=== PATIENT | male | born 1965 | race Caucasian/White ===

== ENCOUNTER 2017-03-12 06:11 | Inpatient (IN) | payer OTHER ==
[2017-03-12] MEDS ORDERED: Ondansetron INJ* 2 MG/ML VIAL ONE (06:14)
[2017-03-12] MEDS ORDERED: Morphine INJ* 4 MG/ML 1 ML CARPUJECT IV ONE ×2 (06:14→06:18)
[2017-03-12] MEDS ORDERED: Heparin for STEMI(*) 5,000 UNITS/ML 1 ML VIAL IV ONE (06:18)
[2017-03-12] MEDS ORDERED: NS 0.9% 1000 ML* 1,000 ML IV ONE (06:18)
[2017-03-12] MEDS ORDERED: nitroGLYCERIN DRIP* 25,000 MCG in PREMIX* 0 ML IV ONE (06:18)
[2017-03-12] MEDS ORDERED: Metoprolol Tartrate IV* 1 MG/ML 5 ML VIAL IV ONE (06:18)
[2017-03-12] MEDS ORDERED: Ticagrelor* 90 MG TAB PO ONE ×2 (06:18→06:22)
[2017-03-12] MEDS ORDERED: Ondansetron INJ* 2 MG/ML VIAL IV ONE (06:18)
[2017-03-12] MEDS ORDERED: Metoprolol Tartrate IV* 1 MG/ML 5 ML VIAL ONE (06:22)
[2017-03-12] MEDS ORDERED: nitroGLYCERIN DRIP* 25,000 MCG/250 ML BTL ONE ×2 (06:22→06:42)
[2017-03-12] MEDS ORDERED: Heparin VIAL(*) 5000 UNITS/ML VIAL (FIVE THOUSAND) ONE (06:22)
[2017-03-12 06:36] LABS: Hematocrit 46 % (42-52); Hemoglobin 15.9 g/dl (14.0-18.0); Mean Corpuscular HGB Conc 35 g/dl (31-36); Mean Corpuscular Hemoglobin 32 pg (27-31); Mean Corpuscular Volume 94 fL (80-94); Mean Platelet Volume 8 um3 (7.4-10.4); Platelet Count 260 10^3/ul (150-450); Red Cell Distribution Width 13 % (10.5-15); White Blood Count 13.6 10^3/ul (3.5-10.8)
[2017-03-12] MEDS ORDERED: Midazolam* 1 MG/ML 10 ML VIAL (10 MG) ONE (06:41)
[2017-03-12] MEDS ORDERED: fentaNYL* 50 MCG/ML 2 ML VIAL (100 MCG VIAL) ONE ×2 (06:41→07:19)
[2017-03-12] MEDS ORDERED: Iohexol 350 (CONTRAST) 200 ML MDV IV ONE (06:42)
[2017-03-12] MEDS ORDERED: Heparin 2 UNITS/ML IVPREMIX* 3,000 ML IV ONE (06:42)
[2017-03-12] MEDS ORDERED: Lidocaine 1% INJ* 10 MG/ML 30 ML SDV ONE (06:42)
[2017-03-12] MEDS ORDERED: Heparin(*) 1000 UNIT/ML 10 ML VIAL CATH LAB IV ONE (06:52)
[2017-03-12] MEDS ORDERED: VERAPAMIL 2.5 MG/ML 4 ML VIAL ONE (06:52)
[2017-03-12 06:59] LABS: EGFR Non-African American 75.6 (>60)
--- NOTE | 2017-03-12 07:03 | ED ---
Ryan Alvarenga Angela, scribed for Dennis Adam MD on 03/12/17 at 0619 . HPI Chest Pain - HPI Summary HPI Summary: STEMI overheard at 06:04, ETA 3 minutes. This pt is a 51 y/o male presenting to [facility] via EMS c/o mid sternal chest pain since 01:00 today. Pt reports the pain suddenly woke him up from sleep at 01:00 today and it continued throughout the night. EMS states the pain radiates to his left arm. Pt notes diaphoresis. He denies pain radiating to his back, LE pain, abd pain, nausea. There are no aggravating or alleviating factors. EMS administered 324 mg of aspirin and nitroglycerin en route prior to arrival to the ED. EMS reports blood pressure of 200/120. Pt denies any drug use. He is a current smoker. NKDA. He notes the last time he saw his PCP was 30 years ago. - History of Current Complaint Hx Obtained From: Patient, EMS Onset/Duration: Started Hours Ago, Still Present Timing: Lasting Hours Current Severity: Severe Pain Intensity: 10 Pain Scale Used: 0-10 Numeric Chest Pain Location: Mid Sternal Chest Pain Radiates: Yes Chest Pain Radiates To:: Arm - left Aggravating Factor(s): Nothing Alleviating Factor(s): Nothing Associated Signs and Symptoms: Positive: Chest Pain, Diaphoresis. Negative: Abdominal Pain, Calf Pain/Swelling - Allergy/Home Medications Allergies/Adverse Reactions: Allergies Allergy/AdvReac Type Severity Reaction Status Date / Time No Known Allergies Allergy Verified 09/08/15 09:03 PMH/Surg Hx/FS Hx/Imm Hx Endocrine/Hematology History: Denies: Hx Diabetes Cardiovascular History: Reports: Hx Angina, Hx Hypercholesterolemia Denies: Hx Coronary Artery Disease, Hx Hypertension, Hx Myocardial Infarction , Hx Valvular Heart Disease Respiratory History: Denies: Hx Asthma, Hx Chronic Obstructive Pulmonary Disease (COPD) History: Reports: Hx Kidney Stones - Family History Known Family History: Positive: Cardiac Disease - mother and father - Social History Alcohol Use: None Substance Use Type: Reports: None Smoking Status (MU): Light Every Day Tobacco Smoker Type: Cigarettes Review of Systems Positive: Skin Diaphoresis. Negative: Fever Positive: Chest Pain Negative: Abdominal Pain Negative: Other - LE pain All Other Systems Reviewed And Are Negative: Yes Physical Exam - Summary Physical Exam Summary: Appearance: Ill appearing, moderate distress due to pain Skin: warm, reflects adequate perfusion. Pt is diaphoretic. Head/face: normal Eyes: EOMI, CATHERINE ENT: Moist mucous membranes. Neck: supple, non-tender Respiratory: CTA, breath sounds present Cardiovascular: RRR without murmurs. Pulses symmetrical Abdomen: non-tender, soft Bowel: present Musculoskeletal: normal, strength/ROM intact Neuro: normal, sensory motor intact, A&Ox3 Triage Information Reviewed: Yes Vital Signs On Initial Exam: Initial Vitals Temp Pulse Resp BP Pulse Ox 36.3 C 81 24 182/105 96 03/12/17 06:14 03/12/17 06:14 03/12/17 06:14 03/12/17 06:14 03/12/17 06:14 Vital Signs Reviewed: Yes Diagnostics - Vital Signs Vital Signs Temp Pulse Resp BP Pulse Ox 03/12/17 06:45 36.3 C 70 16 157/92 99 03/12/17 06:35 70 30 157/92 99 03/12/17 06:30 72 28 156/95 99 03/12/17 06:20 20 03/12/17 06:17 25 182/105 91 03/12/17 06:16 59 96 03/12/17 06:14 36.3 C 81 24 182/105 96 - Laboratory Lab Results: Lab Results 03/12/17 03/12/17 Range/Units 06:23 06:23 WBC 13.6 H (3.5-10.8) 10^3/ul RBC 4.90 (4.0-5.4) 10^6/ul Hgb 15.9 (14.0-18.0) g/dl Hct 46 (42-52) % MCV 94 (80-94) fL MCH 32 H (27-31) pg MCHC 35 (31-36) g/dl RDW 13 (10.5-15) % Plt Count 260 (150-450) 10^3/ul MPV 8 (7.4-10.4) um3 Neut % (Auto) Pending Lymph % (Auto) Pending [place] % (Auto) Pending Eos % (Auto) Pending Baso % (Auto) Pending Absolute Neuts (auto) Pending Absolute Lymphs (auto) Pending Absolute Monos (auto) Pending Absolute Eos (auto) Pending Absolute Basos (auto) Pending Absolute Nucleated RBC Pending Nucleated RBC % Pending Sodium 138 (133-145) mmol/L Potassium 3.7 (3.5-5.0) mmol/L Chloride 104 (101-111) mmol/L Carbon Dioxide 24 (22-32) mmol/L Anion Gap 10 (2-11) mmol/L BUN 14 (6-24) mg/dL Creatinine 1.04 (0.67-1.17) mg/dL Est GFR ( Amer) 97.2 (>60) Est GFR (Non-Af Amer) 75.6 (>60) BUN/Creatinine Ratio 13.5 (8-20) Glucose 141 H (70-100) mg/dL Calcium 9.8 (8.6-10.3) mg/dL Total Bilirubin 0.40 (0.2-1.0) mg/dL AST 37 (13-39) U/L ALT 37 (7-52) U/L Alkaline Phosphatase 100 (34-104) U/L Total Creatine Kinase 684 H (10-223) U/L CK-MB (CK-2) Pending Troponin I Pending Total Protein 7.5 (6.4-8.9) g/dL Albumin 4.1 (3.2-5.2) g/dL Globulin 3.4 (2-4) g/dL Albumin/Globulin Ratio 1.2 (1-3) LDL Cholesterol Direct 197 mg/dL Result Diagrams: 03/12/17 06:23 03/12/17 06:23 Lab Statement: Any lab studies that have been ordered have been reviewed, and results considered in the medical decision making process. - Radiology Chest XR Xray Interpretation: Positive (See Comments) - Overexposed. No cardiomegaly. Normal mediastinum. Radiology Interpretation Completed By: ED Physician - EKG 06:12 Cardiac Rate: NL EKG Rhythm: Sinus Rhythm - at 79 bpm EKG Interpretation: Normal axis. ST elevation in II, III, and aVF. ST depression in I and aVL. Chest Pain Course/Dx - Course Course Of Treatment: EMS administered 324 mg of aspirin and nitroglycerin en route prior to arrival to the ED. I discussed pt care with Dr. Alvarado, who will come see the pt in the ED. He will take the pt to the can labeler direct. With inf wall TN, crushing pain tx with morphine and low dose Nitro gtt (with fluids). Beta derek, heparin and Brilinta given in ED. He was improving at dispo to can labeler. - Diagnoses Provider Diagnoses: STEMI (ST elevation myocardial infarction) During the Visit The Following Alert/Code Occurred: STEMI - at 06:04, ETA 3 minutes. - Provider Notifications Discussed Care Of Patient With: Osmin Alvarado Time Discussed With Above Provider: 06:05 Instructed by Provider To: Other - I discussed pt care with Dr. Alvarado, who will come see the pt in the ED. He will admit the pt. - Critical Care Time Critical Care Time: 30-74 min - 30 minutes - CCT is EXCLUSIVE of separately billable procedures Discharge - Discharge Plan Condition: Critical Disposition: ADMITTED TO [facility] Referrals: No Primary Care Phys,NOPCP [Primary Care Provider] - The documentation as recorded by the Ryan vilchis Angela accurately reflects the service I personally performed and the decisions made by , Dennis Adam MD.
[2017-03-12 07:10] LABS: INR 0.88 (0.77-1.02)
--- NOTE | 2017-03-12 08:02 | RAD ---
HISTORY: Chest pain, STEMI COMPARISONS: October 05, 2013 VIEWS: 1: frontal portable view of the chest at 6:26 AM FINDINGS: LINES AND TUBES: None. CARDIOMEDIASTINAL SILHOUETTE: The cardiomediastinal silhouette is normal for portable technique. PLEURA: The costophrenic angles are sharp. No pleural abnormalities are noted. LUNG PARENCHYMA: The lungs are clear. ABDOMEN: The upper abdomen is clear. There is no subphrenic gas. BONES AND SOFT TISSUES: No bone or soft tissue abnormalities are noted. IMPRESSION: NO ACTIVE CARDIOPULMONARY DISEASE.
[2017-03-12 08:42] LABS: Monocytes % 3 % (0-13)
[2017-03-12] MEDS ORDERED: Nitroglycerin TAB 0.4 MG* 0.4 MG TAB SL PRN (09:12)
[2017-03-12] MEDS ORDERED: Acetaminophen TAB* 325 MG PO PRN (09:12)
[2017-03-12] MEDS ORDERED: NS 0.9% 1000 ML* 1,000 ML IV SCH (09:15)
[2017-03-12] MEDS: Metoprolol Tartrate TAB* 25 MG PO SCH ×2 (10:47→18:31)
[2017-03-12] MEDS: LORazepam INJ* 2 MG/ML 1 ML VIAL IV PUSH PRN ×2 (11:30→21:28)
[2017-03-12] MEDS: Nicotine PATCH 14 MG/24 HR* PATCH TRANSDERM SCH (12:00)
--- NOTE | 2017-03-12 12:59 | HP ---
CC: Awilda Pepe MD HISTORY AND PHYSICAL: DATE OF ADMISSION: 03/12/17 HISTORY OF PRESENT ILLNESS: A 51-year-old male with acute inferior wall ST- elevation infarct. He has not seen a physician for some 30 years. He takes no medications. At approximately 0100 hours, he developed precordial chest pain, tried to "tough it out." Ultimately, he called paramedics, EKG showed inferior ST elevation, he was given aspirin and transported to the ER. EKG at 0612 showed sinus rhythm with inferior ST elevation, reciprocal ST depression in I, aVL, V1 and V2. A STEMI was called. In retrospect, he has no previous clear chest pain, but has been more fatigued. SOCIAL HISTORY: He is a smoker. He is . 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 He smokes about a pack per day. FAMILY HISTORY: Positive for premature coronary artery disease in numerous relatives. PREHOSPITAL MEDICATIONS: None. REVIEW OF SYSTEMS: General: No weight loss. No fever. He is moderately overweight and fairly sedentary. Heme: no h/o anemia or bleeding. Remainder 14 point review -. PHYSICAL EXAMINATION VITAL SIGNS: On arrival, BP recorded at 182/105, heart rate in the 80s. HEENT: Mucosa moist, poor dentition, no xanthelasma, scleral injection or jaundice. EOMs normal. NECK: JVP and carotids and normal. No thyromegaly. CHEST: Clear to percussion and auscultation. HEART: Chest wall nontender, apex and RV not palpable. Normal heart sounds, regular rhythm. No gallop, murmur, or rub. ABDOMEN: Soft, nontender, obese. No bruit. I cannot feel the aorta or liver edge. No masses. EXTREMITIES: Femoral pulses 2+. Radial pulses 2+. Pedal pulses 2+. He has no cyanosis, clubbing or edema. NEUROLOGIC: Cranial nerves intact. SKIN: Warm and well perfused. PSYCH: He is oriented and appropriately anxious. DIAGNOSTIC STUDIES/LABORATORY DATA: EKG is as above. White count 13.6 with normal hemoglobin, hematocrit and platelet count. BMP normal with creatinine of 1.04, GFR 75.6. First CPK elevated at 684 with MB of 8, troponin 0.16. LDL 197. Chest x-ray by my review of portable film, no infiltrate or heart failure. IMPRESSION: 1. Acute inferior wall ST-elevation infarct Killip class I. He underwent emergent catheterization. 2. Tobacco use. We will encourage him not to resume smoking. 3. Hyperlipidemia. He will be started on high dose potent statin. 4. Presenting hypertension, we will follow his vitals. [id number]/[facility] [facility] #: [id number] MTDD
[2017-03-12] MEDS ORDERED: Atorvastatin* 80 MG TAB PO SCH (17:00)
[2017-03-12] MEDS ORDERED: Nicotine Patch Removal NOTE PATCH OFF SCH (21:00)
[2017-03-12] MEDS: Ticagrelor* 90 MG TAB PO SCH (21:11)
--- NOTE | 2017-03-13 00:52 | CATH ---
CC: Dr. Alvarado STENT REPORT: DATE OF PROCEDURE: 03/12/17 PRIMARY: None. PROCEDURES: Right radial artery access, bilateral selective coronary cineangiography, left heart catheterization, left ventriculography. HISTORY: A 51-year-old male presenting late with an inferior wall ST elevation infarct. PROCEDURE ACCESS: Right radial artery sheath 6F slender. MEDICATIONS: 1. Subcu lidocaine. 2. IV Versed. 3. IV fentanyl. 4. Nitroglycerin 300 mcg. 5. Verapamil 3 mg IA. 6. Brilinta 180 mg p.o. loading dose. 7. Heparin 4000 units IV. 8. Aspirin 324 pre-laboratory animal care veterinarian. 9. Heparin 5000 units IV. DIAGNOSTIC CATHETER: 5F TIG4, 5F pigtail. GUIDING CATHETER: RCA 6F R4, wire 14 BMW used to deploy a 3.0 x 20 Synergy drug - eluting stent, distal RCA 11 atmospheres 16 seconds, post-dilated with a 3 x 20 NC balloon 20 atmospheres 30 seconds. A 6F LBU 3.5 guide was then used with a 14 BMW wire to deploy a Synergy 2.75 x 16 drug-eluting stent at the origin of OM1 13 atmospheres 20 seconds, it was post-dilated with a 2.75 x 15 mm NC balloon 22 atmospheres 50 seconds. LV gram was then performed. HEMODYNAMICS: Initial BP 154/88, LV 141/14-28, no aortic valve gradient on pullback. ANGIOGRAPHY: RCA. The RCA is large with a Bales's crook take-off, the mid RCA before the crux has a 90% stenosis with a small thrombus, distal RCA has a large distribution with YAMILA-2 flow, a moderate PDA and a larger posterolateral. Left main. The left main is normal. LAD. The LAD is moderate, supplies a moderate diagonal branch, ends past the apex, the LAD has mild luminal irregularity, but no significant stenosis. Circumflex. The circumflex is moderate, not dominant with a large ramus, which has 30% proximal stenosis, followed by a 40% to 50% stenosis in the circumflex continuation, which is quite short, circumflex then supplies a single marginal branch, which has 80% proximal stenosis, the marginal has a large distribution supplying the entire obtuse margin. After stent placement RCA and post-dilatation, there is no residual stenosis, flow is YAMILA-3, there is no dissection. After circumflex OM stent deployment and post-dilation, there is normal antegrade flow, no dissection. LV gram. LV shows hypokinesis of the inferior wall with an LVEF of 45%, was performed on fluoroscopy and not stored digitally. CONCLUSION: 1. Two-vessel coronary disease with culprit RCA, excellent angiographic results with drug-eluting stent placement RCA and circumflex OM. The circumflex continuation after the ramus was not stented as it is at most moderate, very discrete. 2. Mildly reduced LV systolic function with regional wall motion abnormality. [id number]/[facility] #: [id number] [facility]
[2017-03-13] MEDS: Metoprolol Tartrate TAB* 25 MG PO SCH ×2 (02:19→09:21)
[2017-03-13 06:26] LABS: EGFR Non-African American 88.2 (>60)
[2017-03-13] MEDS ORDERED: Aspirin Low Dose CHEW TAB* 81 MG PO SCH (09:00)
[2017-03-13] MEDS: Ticagrelor* 90 MG TAB PO SCH (09:21)
[2017-03-13] MEDS: Nicotine PATCH 14 MG/24 HR* PATCH TRANSDERM SCH (10:13)
[2017-03-13] MEDS: LORazepam INJ* 2 MG/ML 1 ML VIAL IV PUSH PRN (10:16)
[2017-03-13 13:34] VITALS: BP 88/60
[2017-03-13] MEDS ORDERED: Metoprolol Tartrate TAB* 25 MG PO SCH (21:00)
--- NOTE | 2017-03-14 04:52 | DS ---
CC: Dr. Osmin Alvarado DISCHARGE SUMMARY: DATE OF ADMISSION: 03/12/17 DATE OF SIGNING OUT AMA: 03/13/17 PRIMARY CARE PHYSICIAN: None. DISCHARGE DIAGNOSES: 1. Inferior wall ST elevation infarct. 2. Tobacco use. 3. Hyperlipidemia. CONDITION ON DISCHARGE: Improved. PROCEDURES: Cardiac cath, stent placement, right radial approach 03/12 3.0 x 20 mm drug-eluting stent RCA; 2.75 x 16 drug-eluting stent circumflex OM. DISCHARGE MEDICATIONS: 1. Aspirin 81 mg daily. 2. Lipitor 80 mg daily. 3. Metoprolol 25 mg b.i.d. 4. Nicotine patch 14 mg q.24 hours. 5. Nitroglycerin 0.4 sublingual p.r.n. 6. Brilinta 90 mg b.i.d. a minimum of 1 year without interruption. FOLLOWUP: Follow up with me, to call on Wednesday for a followup appointment next week. To not smoke. ACTIVITY: No strenuous exertion for 1 week to walk for 30 minutes daily. Do no resume work for 1 week. DIET: Low fat, low cholesterol, cardiac. HISTORY: See H and P. LABORATORY DATA: BMP today post PCI is stable with normal creatinine. Troponin is up to 1.57 at 2130 last night. Cholesterol 263, triglycerides 203, LDL 194, HDL 33.3 on no therapy. EKG today shows a Q-wave inferior infarct. HOSPITAL COURSE: He presented late with an inferior wall ST elevation infarct, underwent emergent catheterization, which revealed a culprit RCA 80% to 90% stenosis with a thrombus, which was stented with 3 x 20 drug-eluting stent, the circumflex OM with 80% stenosis was stented with a 2.75 x 16 drug-eluting stent. LV gram showed inferior hypokinesis with EF of 45%. He had a small rise in troponin, he had no post PCI chest pain heart failure, arrhythmias or issues with his right wrist. He is recommended a minimum of 48 hours of hospitalization with telemetry to monitor for life threatening arrhythmias; however, he elected to sign out AMA after 24 hours. We have asked home health care social worker to help him to acquire medicaid coverage. I discussed with him at great length that he is taking a risk leaving the hospital AMA. We reviewed the importance of his medical regimen, the importance of followup, the importance of restricting activity for 7 days, reviewed wound care. He will be given a 5-day supply of Brilinta when he leaves, I explained to them that they can get samples from our office if he starts getting low on Brilinta before he can get Medicaid and before his followup visit. I reviewed with him the importance of not discontinuing Brilinta. [id number]/[facility] #: [id number] KATELYN
== END 2017-03-13 15:00 | disposition left against medical advice (07) | DRG 174 ==
LOC: ED 06:11 → CHICATH 06:46 → ICU 08:26
PROVIDERS: ADMIT Internal Medicine Cardiovascular Disease; ATTEND Internal Medicine Cardiovascular Disease
PROC: B2111ZZ Fluoroscopy of Multiple Coronary Arteries using Low Osmolar Contrast (ICD-10-PCS; 2017-03-12)
PROC: B2151ZZ Fluoroscopy of Left Heart using Low Osmolar Contrast (ICD-10-PCS; 2017-03-12)
PROC: 4A023N7 Measurement of Cardiac Sampling and Pressure, Left Heart, Percutaneous Approach (ICD-10-PCS; 2017-03-12)
PROC: 027135Z Dilation of Coronary Artery, Two Arteries with Two Drug-eluting Intraluminal Devices, Percutaneous Approach (ICD-10-PCS; principal; 2017-03-12 06:45)
DX: I21.19 ST elevation (STEMI) myocardial infarction involving other coronary artery of inferior wall (principal); E66.3 Overweight; E78.5 Hyperlipidemia, unspecified; Z53.21 Procedure and treatment not carried out due to patient leaving prior to being seen by health care provider; F17.210 Nicotine dependence, cigarettes, uncomplicated; I10 Essential (primary) hypertension; I25.10 Atherosclerotic heart disease of native coronary artery without angina pectoris; Z79.82 Long term (current) use of aspirin; Z79.02 Long term (current) use of antithrombotics/antiplatelets; Z82.49 Family history of ischemic heart disease and other diseases of the circulatory system; Z68.33 Body mass index [BMI] 33.0-33.9, adult
CPT/HCPCS: 36415; 71045; 80048; 80053; 80061; 82550; 82553; 83605; 83721; 83880; 84484; 85025; 85060; 85610; 85730; 87641; 93005; 99156; 99157; 99285; A9270-GY; C1725; C1769; C1876; C1887; C9601-LC; C9606-RC; J1644; J2060; J2250; J2270; J2405; J3010; J3490

== ENCOUNTER 2018-06-10 10:22 | Emergency (ER) | payer SELFPAY ==
[2018-06-10] MEDS ORDERED: NS 0.9% 1000 ML** 1,000 ML IV ONE ×2 (10:29→11:32)
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
[2018-06-10] MEDS ORDERED: Iodixanol* (CONTRAST) 320 MG/ML 100 ML SDV IV ONE (10:45)
[2018-06-10] MEDS ORDERED: Morphine 4 MG/ML VIAL (1 ml) 4 MG/ML VIAL IV ONE (11:12)
[2018-06-10] MEDS ORDERED: Ondansetron INJ* 2 MG/ML VIAL IV ONE (11:12)
[2018-06-10 11:13] LABS: ABS Basophils 0.1 10^3/ul (0-0.2); ABS Eosinophils 0 10^3/ul (0-0.6); ABS Lymphocytes 1.6 10^3/ul (1.0-4.8); ABS Monocytes 0.9 10^3/ul (0-0.8); ABS Neutrophils 11.1 10^3/ul (1.5-7.7); ABS Nucleated RBC 0 10^3/ul; Eosinophil % 0.4 %; Hematocrit 45 % (36-46); Hemoglobin 15.1 g/dL (14.0-18.0); Lymphocyte % 11.9 %; Mean Corpuscular HGB Conc 34 g/dL (31-36); Mean Corpuscular Hemoglobin 32 pg (27-31); Mean Corpuscular Volume 94 fL (80-94); Mean Platelet Volume 7.4 fL (7.4-10.4); Nucleated Red Blood Cells % 0; Platelet Count 258 10^3/uL (150-450); Red Blood Count 4.76 10^6 /uL (4.18-5.48); Red Cell Distribution Width 13 % (10.5-15); White Blood Count 13.8 10^3/uL (3.5-10.8)
[2018-06-10 11:32] LABS: ALT 31 U/L (7-52); AST 33 U/L (13-39); Albumin 3.7 g/dL (3.2-5.2); Albumin/Globulin Ratio 1.1 (1-3); Alkaline Phosphatase 95 U/L (34-104); Anion Gap 6 mmol/L (2-11); BUN/Creatinine Ratio 16.8 (8-20); Blood Urea Nitrogen 20 mg/dL (6-24); CO2 Carbon Dioxide 21 mmol/L (22-32); Calcium 8.9 mg/dL (8.6-10.3); Chloride 109 mmol/L (101-111); Creatine Kinase 659 U/L (10-223); EGFR Non-African American 64.4 (>60); Globulin 3.4 g/dL (2-4); Glucose 106 mg/dL (70-100); Potassium 4.1 mmol/L (3.5-5.0); Sodium 136 mmol/L (135-145); Total Protein 7.1 g/dL (6.4-8.9)
[2018-06-10 11:47] LABS: Alcohol < 10 mg/dL (<10)
[2018-06-10 12:36] LABS: Urine Appearance Clear; Urine Bacteria Absent (Absent); Urine Bilirubin Negative (Negative); Urine Blood 1+ (Negative); Urine Color Yellow; Urine Glucose Negative (Negative); Urine Ketones Negative (Negative); Urine Nitrite Negative (Negative); Urine Protein Negative (Negative); Urine Red Blood Cell Trace(0-2/hpf) (Absent); Urine Specific Gravity 1.053 (1.010-1.030); Urine Urobilinogen Negative (Negative); Urine White Blood Cell Trace(0-5/hpf) (Absent)
[2018-06-10 12:54] LABS: Urine Benzodiazepine Screen None Detected (None Detect); Urine Opiates Screen Presumptive Positive (None Detect)
[2018-06-10] MEDS ORDERED: oxyCODONE/Acetamin 5/325 MG* TAB PO ONE (13:27)
[2018-06-10 14:06] VITALS: BP 153/92
== END 2018-06-10 14:09 | disposition left against medical advice (07) ==
LOC: ED 10:22
DX: M25.511 Pain in right shoulder (principal); M25.512 Pain in left shoulder; Z53.21 Procedure and treatment not carried out due to patient leaving prior to being seen by health care provider; E78.00 Pure hypercholesterolemia, unspecified; I25.2 Old myocardial infarction; Z87.442 Personal history of urinary calculi; F17.210 Nicotine dependence, cigarettes, uncomplicated; S00.81XA Abrasion of other part of head, initial encounter; V18.4XXA Pedal cycle driver injured in noncollision transport accident in traffic accident, initial encounter; Y93.55 Activity, bike riding; Y92.488 Other paved roadways as the place of occurrence of the external cause
CPT/HCPCS: 36415; 70450; 71260; 72125; 72128; 72131; 74177; 80053; 80307; 80320; 81003; 81015; 82550; 83605; 85025; 85610; 86850; 86900; 86901; 87086; 93005; 96361; 96374; 96375; 99285; A9270-GY; G0480; J2270; J2405; Q9967

== ENCOUNTER 2018-07-06 14:45 | Inpatient (IN) | payer MEDICAID ==
[2018-07-06] MEDS ORDERED: Ticagrelor* 90 MG TAB PO ONE ×2 (14:47→17:00)
[2018-07-06] MEDS ORDERED: Heparin for STEMI(*) 5,000 UNITS/ML 1 ML VIAL IV ONE ×4 (14:47→17:00)
[2018-07-06] MEDS ORDERED: Midazolam* 1 MG/ML 5 ML VIAL (5 MG) ONE (14:55)
[2018-07-06] MEDS ORDERED: Heparin 2 UNITS/ML IVPREMIX* 3,000 UNIT/1,500 ML BAG IV ONE (14:55)
[2018-07-06] MEDS ORDERED: fentaNYL* 50 MCG/ML 2 ML VIAL (100 MCG VIAL) ONE (14:55)
[2018-07-06] MEDS ORDERED: Heparin(*) 1000 UNIT/ML 10 ML VIAL CATH LAB IV ONE (14:55)
[2018-07-06] MEDS ORDERED: VERAPAMIL 2.5 MG/ML 2 ML VIAL ** 5 mg/2 ml ONE (14:55)
[2018-07-06] MEDS ORDERED: Iohexol 350 (CONTRAST) 200 ML MDV IV ONE (14:56)
[2018-07-06] MEDS ORDERED: nitroGLYCERIN DRIP* 25,000 MCG/250 ML BTL ONE ×2 (14:56→15:04)
[2018-07-06] MEDS ORDERED: Lidocaine 1% INJ* 10 MG/ML 30 ML SDV ONE (14:56)
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
--- OUTSIDE RECORDS SUMMARY | 2018-07-06 14:56 | XMS REPORT | Continuity of Care Document ---
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 03/13/2017 - 81mg day MD Christiano, 06/14/2018 [facility]wt[facility] [place] [place] Atorvastatin Calcium 1 by mouth every Marcis T. 03/13/2017 - 80mg day MD Christiano, 06/14/2018 Tablets [facility] [place] [place] Metoprolol Tartrate 1 by mouth twice a Marcis T. 03/13/2017 - 25mg day MD Christiano, 06/14/2018 [facility]ts [facility] [place] [place] Brilinta 1 tab by mouth 60tabs Osmin T. 03/13/2017 - 90mg Tablets twice a day MD Christiano, 06/14/2018 FACDonny, FSCSARINA Nitrostat one sl q5min up to 14tabs Osmin T. 03/13/2017 - 0.4mg Tablets 3 doses as needed MD Christiano, 06/14/2018 Sub [facility] [place] [place] Nicotine 1 apply patch 30units Osmin Rene 03/13/2017 - 14mg/24HR topically every 24 MD Christiano, 06/14/2018 Patches 24HR hours. [facility] Immunizations Description No Information Available Vital Signs Date Vital Result Comment 06/15/2018 10:05am Height 66 inches 5'6" Weight 211.00 lb Heart Rate 72 /min BP Systolic Sitting 152 mmHg BP Diastolic Sitting 100 mmHg Respiratory Rate 18 /min Pain Level 10 BMI (Body Mass Index) 34.1 kg/m2 Results Description No Information Available Procedures Date Code Description Status 03/13/2017 27031 EKG, Interpretation Only Completed 03/12/2017 52514 Left Heart Cath. Incl S/I Coronaries, Angio S/I V Gram If Completed Done 03/12/2017 11918 EKG, Interpretation Only Completed 03/12/2017 99486 Revascularization Acute Total/Subtotal Occlusion Completed 03/12/2017 58680 Percutaneous Transcatheter Placement Of Intracoronary Completed Stent 10/06/2013 02271 Treadmill Interp/Report Only Completed 10/06/2013 18935 Stress Test Supervsn W/Out I/R Completed Encounters Type Date Location Provider Dx Diagnosis Office Visit 06/15/2018 [facility] Zay S43.51xA Sprain of right 9:30a Services Of MD Lisette acromioclavicular C.M.A. 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 coronary artery w/o ang pctrs E78.5 Hyperlipidemia, unspecified Z72.0 Tobacco use Office Visit 03/12/2017 1:50p [place] [facility] Osmin Rene I21.11 Stemi involving Of [employer]ading Supervisor AT [facility] [place] MD Christiano, right coronary [facility] artery I25.10 Aths[address] heart disease of [place] coronary artery w/o ang pctrs E78.5 Hyperlipidemia, unspecified Z72.0 Tobacco use Office Visit 10/06/2013 12:57p [place] Cayedn Abreu, 786.50 [facility]jennifer Poll[facility]. [facility] 305.1 Tobacco Use Disorder Office [facility]/05[facility]2013 [facility] 786.[facility]jennifer Strange [facility] Hospitalists 305.1 Tobacco Use Disorder Plan of Treatment Future Appointment(s):07/13/2018 9:45 am - Zay Knox MD at [facility]06/15/2018 - Zay Knox MDS43.51xA Sprain of right acromioclavicular joint, initial encounterNew Therapy:Physical TherapyFollow up: Follow up: 4 weeks
[2018-07-06 15:00] LABS: Hematocrit 50 % (42-52); Hemoglobin 17.1 g/dL (14.0-18.0); Mean Corpuscular HGB Conc 34 g/dL (31-36); Mean Corpuscular Hemoglobin 32 pg (27-31); Mean Corpuscular Volume 94 fL (80-94); Mean Platelet Volume 7.8 fL (7.4-10.4); Platelet Count 335 10^3/uL (150-450); Red Blood Count 5.34 10^6 /uL (4.18-5.48); Red Cell Distribution Width 13 % (10.5-15); White Blood Count 16.7 10^3/uL (3.5-10.8)
--- NOTE | 2018-07-06 15:09 | ED ---
HPI Cardiac - HPI Summary HPI Summary: The patient is a 52 y/o M presenting to 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 He was in the shower when the sharp, stabbing pain started. In the ambulance, he was given ASA and 4 NTG to mild relief. His pain is currently rated 10/10 in severity. He additionally c/o diaphoresis, clamminess, and SOB. He states he has been taking his medication BID as supposed to that he was prescribed after getting stents placed a few months ago. 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, Still Present Timing: Lasting Minutes Initial Severity: Severe Current Severity: Severe Pain Intensity: 10 Pain Scale Used: 0-10 Numeric Chest Pain Location: Diffuse Chest Pain Radiates: No Character: Sharp/Stabbing Aggravating Factor(s): Nothing Alleviating Factor(s): Medication - ASA, NTG 123 - 4 Associated Signs and Symptoms: Positive: Chest Pain - diffuse, Shortness of Breath, Diaphoresis - and clamminess - Allergy/Home Medications Allergies/Adverse Reactions: Allergies Allergy/AdvReac Type Severity Reaction Status Date / Time No Known Allergies Allergy Verified 09/08/15 09:03 PMH/Surg Hx/FS Hx/Imm Hx Endocrine/Hematology History: Denies: Hx Diabetes Cardiovascular History: Reports: Hx Angina, Hx Hypercholesterolemia, Hx Myocardial Infarction Denies: Hx Coronary Artery Disease, Hx Hypertension, Hx Valvular Heart Disease Respiratory History: Denies: Hx Asthma, Hx Chronic Obstructive Pulmonary Disease (COPD) History: Reports: Hx Kidney Stones Denies: Hx Renal Disease Sensory History: Denies: Hx Contacts or Glasses, Hx Hearing Aid Opthamlomology History: Denies: Hx Contacts or Glasses - Surgical History Surgery Procedure, Year, and Place: cardiac stent placement in 2019 Infectious Disease History: No Infectious Disease History: Denies: Traveled Outside the [place] in Last 30 Days - Family History Known Family History: Positive: Cardiac Disease - mother and father - Social History Alcohol Use: Occasionally Hx Substance Use: No Substance Use Type: Reports: None Hx Tobacco Use: Yes Smoking Status (MU): Light Every Day Tobacco Smoker Type: Cigarettes Review of Systems Positive: Skin Diaphoresis - clammy Positive: Chest Pain Positive: Shortness Of Breath All Other Systems Reviewed And Are Negative: Yes Physical Exam - Summary Physical Exam Summary: VITAL SIGNS: Reviewed. GENERAL: Patient is a well-developed and nourished male who is lying comfortable in the stretcher. Patient is not in any acute respiratory distress but is in obvious pain distress. HEAD AND FACE: No signs of trauma. No ecchymosis, hematomas or skull depressions. No sinus tenderness. EYES: PERRLA, EOMI x 2, No injected conjunctiva, no nystagmus. EARS: Hearing grossly intact. Ear canals and tympanic membranes are within normal limits. MOUTH: Oropharynx within normal limits. NECK: Supple, trachea is midline, no adenopathy, no JVD, no carotid bruit, no c- spine tenderness, neck with full ROM. CHEST: Symmetric, no tenderness at palpation LUNGS: Clear to auscultation bilaterally. No wheezing or crackles. CVS: Regular rate and rhythm, S1 and S2 present, no murmurs or gallops appreciated. ABDOMEN: Soft, non-tender. No signs of distention. No rebound no guarding, and no masses palpated. Bowel sounds are normal. EXTREMITIES: FROM in all major joints, no edema, no cyanosis or clubbing. NEURO: Alert and oriented x 3. No acute neurological deficits. Speech is normal and follows commands. SKIN: Dry and warm Triage Information Reviewed: Yes Vital Signs On Initial Exam: Initial Vitals Temp Pulse Resp BP Pulse Ox 97.5 F 81 24 211/118 100 07/06/18 14:45 07/06/18 14:45 07/06/18 14:45 07/06/18 14:45 07/06/18 14:45 Vital Signs Reviewed: Yes Diagnostics - Vital Signs Vital Signs Temp Pulse Resp BP Pulse Ox 07/06/18 14:45 97.5 F 81 24 211/118 100 - Laboratory Lab Results: Lab Results 07/06/18 Range/Units 14:51 WBC 16.7 H (3.5-10.8) 10^3/uL RBC 5.34 (4.18-5.48) 10^6 /uL Hgb 17.1 (14.0-18.0) g/dL Hct 50 (42-52) % MCV 94 (80-94) fL MCH 32 H (27-31) pg MCHC 34 (31-36) g/dL RDW 13 (10.5-15) % Plt Count 335 (150-450) 10^3/uL MPV 7.8 (7.4-10.4) fL Neut % (Auto) Pending Lymph % (Auto) Pending Estill % (Auto) Pending Eos % (Auto) Pending Baso % (Auto) Pending Absolute Neuts (auto) Pending Absolute Lymphs (auto) Pending Absolute Monos (auto) Pending Absolute Eos (auto) Pending Absolute Basos (auto) Pending Absolute Nucleated RBC Pending Nucleated RBC % Pending Result Diagrams: 07/07/18 04:40 07/07/18 09:10 Lab Statement: Any lab studies that have been ordered have been reviewed, and results considered in the medical decision making process. - EKG 1441 Cardiac Rate: Tachycardia - 103 BPM EKG Rhythm: Sinus Tachycardia Summary of EKG Findings: St elevations in 2, 3, and aVF, Reciprocal changes in V1, V2, V3, and V4, Consistent with inferior wall DC Disposition - Course Assessment/Plan: The patient is a 52 y/o M presenting to 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 He was in the shower when the sharp, stabbing pain started. In the ambulance, he was given ASA and 4 NTG to mild relief. His pain is currently rated 10/10 in severity. He additionally c/o diaphoresis, clamminess, and SOB. He states he has been taking his medication BID as supposed to that he was prescribed after getting stents placed a few months ago. The patient came via ambulance. Patient was immediately placed in the headache monitor, IV access was obtained, blood work was ordered, an EKG was done. The EKG shows a sinus tachycardia 103 bpm, ST elevations in leads 2, 3, aVF, with reciprocal changes in V1 - V3. Dr. Lassiter from interventional Cardiology at bedside. In the ED course the patient was given heparin Brilinta. At this point Dr. Lassiter will be admitted the patient to his services and will bring the patient to the [facility]. The patient signed the consent for the Cath. At this time the patient is hemolytically stable. The patient is alert and oriented 3. Blood work without any significant abnormality except for the bilirubin of 16.7, glucose is 121, and troponin is 0.01, CPK is 539, and alkaline phosphatase is 155. - Diagnoses Provider Diagnoses: STEMI (ST elevation myocardial infarction) - Physician Notifications Discussed Care Of Patient With: Jackson Lassiter - cardiology Time Discussed With Above Provider: 14:43 Instructed by Provider To: Other - Dr. Lassiter clears the patient to go to the cytogenetics laboratory manager. The patient is accepted for admission at this time. - Critical Care Time Critical Care Time: 30-74 min Discharge - Sign-Out/Discharge Documenting (check all that apply): Patient Departure - Patient will be admitted to [facility] for further care. Patient Received Moderate/Deep Sedation with Procedure: No - Discharge Plan Condition: Critical Disposition: ADMITTED TO [facility] - Billing Disposition and Condition Condition: CRITICAL Disposition: Admitted to [facility] - Attestation Statements Document Initiated by Quincy: Yes Documenting Scribe: Cassandra Whittaker Provider For Whom Quincy is Documenting (Include Credential): Dr. David Potts MD Scribe Attestation: ICassandra scribed for Dr. David Potts MD on 07/07/18 at 2129. Scribe Documentation Reviewed: Yes Provider Attestation: The documentation as recorded by the Cassandra vilchis accurately reflects the service I personally performed and the decisions made by me, Dr. David Potts MD Status of Scribe Document: Viewed
[2018-07-06] MEDS ORDERED: Bivalirudin(*) 250 MG VIAL ONE (15:19)
[2018-07-06 15:20] LABS: Albumin 4.6 g/dL (3.2-5.2); Albumin/Globulin Ratio 1.2 (1-3); BUN/Creatinine Ratio 17.4 (8-20); Calcium 9.9 mg/dL (8.6-10.3); EGFR African American 81.1 (>60); Globulin 3.8 g/dL (2-4); Potassium 3.8 mmol/L (3.5-5.0); Total Bilirubin 0.4 mg/dL (0.2-1.0); Total Protein 8.4 g/dL (6.4-8.9)
[2018-07-06 15:22] LABS: Troponin I 0.01 ng/mL (<0.04)
[2018-07-06 15:23] LABS: CKMB ng/mL 3.2 ng/mL (0.6-6.3)
[2018-07-06 15:28] LABS: INR 0.91 (0.82-1.09)
[2018-07-06 15:33] LABS: Activated Partial Thrombo Time 110.9 seconds (26.0-36.3)
[2018-07-06 15:57] LABS: ABS Neutrophils 7.3 10^3/ul (1.5-7.7)
[2018-07-06 15:59] LABS: ABS Basophils 0.2 10^3/ul (0-0.2); ABS Eosinophils 0.2 10^3/ul (0-0.6)
[2018-07-06] MEDS ORDERED: Ondansetron INJ* 2 MG/ML VIAL IV PRN (16:07)
[2018-07-06] MEDS ORDERED: Nitroglycerin TAB 0.4 MG* 0.4 MG TAB SL PRN (16:07)
[2018-07-06] MEDS ORDERED: Docusate CAP* 100 MG PO PRN (16:07)
[2018-07-06] MEDS ORDERED: NS 0.9% 1000 ML** 1,000 ML IV SCH (16:15)
[2018-07-06] MEDS ORDERED: Atorvastatin* 80 MG TAB PO ONE (17:00)
[2018-07-06] MEDS ORDERED: nitroGLYCERIN DRIP* 25,000 MCG/250 ML BTL IV SCH (17:00)
[2018-07-06] MEDS ORDERED: Pantoprazole TAB * 40 MG TAB PO ONE (17:36)
[2018-07-06] MEDS ORDERED: Al Hydrox/Mg Hydrox/Simet LIQ* 30 ML UDC PO ONE (17:37)
--- NOTE | 2018-07-06 18:08 | HP ---
ADMISSION HISTORY AND PHYSICAL: DATE OF ADMISSION: 07/06/18 CHIEF COMPLAINT: Severe chest discomfort radiating to neck and jaw. HISTORY OF PRESENT ILLNESS: The patient is a 52-year-old gentleman, who has a prior known cardiac hi story dating back to 03/12/17 when he presented with an acute inferior wall myocardial infarction. A t that time, he had undergone drug-eluting stent placement by Dr. Alvarado with placement of a 3.0 x 20 mm long Synergy drug- eluting stent in the distal right coronary artery and placement of a 2.75 x 16 mm long drug-eluting stent in the origin of the first OM. He eventually was discharged home and was noncompliant on following up with lawyers and also taking medications. By his own volition, he stated that he does not believe he took his medications for more than a month. More recently now, he has noted the development of epigastric discomfort to low middle of the chest w ith radiation up his neck and into his jaw. It would occur with exertion and he has had it on and of f for the past several days. Today, after taking a shower, he developed severe symptoms with this. The EMS was called and EKG demonstrated an acute ST-segment elevation inferior wall myocardial infarc tion. He was given aspirin and brought to the emergency room. In the emergency room, EKG repeated sh owed the same. He was given 180 mg of Brilinta and a total of 7000 units of heparin intravenously. Discussion was had with him about proceeding to the cardiovascular laboratory. Of note, he was borde rline hysterical with crying and it made it somewhat difficult to discuss cardiac catheterization wit h him. He agreed though, however, and was therefore brought to the cardiac cathead worker for emergent int ervention. PAST MEDICAL HISTORY: He denies any prior known history of hypertension, diabetes, or hyperlipidemia . PRE-HOSPITAL MEDICATIONS: None, as the patient had stopped them. FAMILY HISTORY: He has a family history that was positive for premature coronary artery disease in n umerous relatives. SOCIAL HISTORY: He does smoke and he continues to smoke. REVIEW OF SYSTEMS: Pertinent to proceeding to the cardiovascular laboratory, he denied any history o f hematochezia, hematuria, or hematemesis. Denied any history of CVA or TIA. Denied any history of significant kidney disease. He does have moderate obesity and is sedentary in his lifestyle. PHYSICAL EXAMINATION GENERAL: In the emergency room revealed a severely anxious gentleman complaining of chest discomfort . VITAL SIGNS: Initially in the emergency room with blood pressure of 211/118 with a pulse of 81, resp irations 24, O2 saturation 100% on nasal cannula. NECK: Supple. I could not appreciate definitive bruits, although it is difficult to auscultate in g eneral due to his crying. LUNGS: Fairly clear to A and P. HEART: Distant in nature with no significant systolic or diastolic murmur, although once again heart sounds were difficult to appreciate because of his emotional state. ABDOMEN: Obese, soft, nontender. EXTREMITIES: Without clubbing, cyanosis, isauro pitting edema. Peripheral pulses were intact. Femor al pulses noted without bruits. Right radial artery pulse was present. NEURO: The patient is alert, oriented. MUSCULOSKELETAL: The patient moves all extremities appropriately. PSYCHOLOGICAL: The patient is markedly anxious and in a distraught state, having ongoing chest disco mfort. DIAGNOSTIC STUDIES/LAB DATA: Electrocardiogram in the emergency room revealed sinus tachycardia, he art rate 103, marked ST-segment elevation was seen inferiorly with reciprocal changes in V1 through V 3. Laboratory results were pending at the time of being seen in the emergency room. OVERALL ASSESSMENT: Acute ST-segment elevation inferior wall myocardial infarction. PLAN: The patient received heparin, aspirin, Brilinta (180 mg orally) therapy in the emergency room. The patient will be taken emergently to the cardiovascular laboratory for cardiac cath and possible intervention. The risks and benefits were explained as best as could be in his emotional state. He understood them and wished to proceed. Further management will be pending results of the cardiac ca theterization. [id number]/[facility] #: [id number]
[2018-07-06] MEDS: Acetaminophen TAB* 325 MG PO PRN (18:17)
[2018-07-06] MEDS ORDERED: fentaNYL* 50 MCG/ML 2 ML VIAL (100 MCG VIAL) IV ONE (20:12)
[2018-07-06] MEDS: Metoprolol Tartrate TAB* 25 MG PO SCH (21:02)
[2018-07-06] MEDS: Ticagrelor* 90 MG TAB PO SCH (21:02)
[2018-07-06 21:11] LABS: Creatine Kinase 517 U/L (10-223)
[2018-07-06 21:18] LABS: CKMB ng/mL 21.9 ng/mL (0.6-6.3)
[2018-07-06 21:20] LABS: Troponin I 3.42 ng/mL (<0.04)
[2018-07-07] MEDS: Zolpidem TAB* 5 MG PO PRN (00:09)
[2018-07-07 03:20] LABS: Creatine Kinase 543 U/L (10-223)
[2018-07-07 03:26] LABS: CKMB ng/mL 28.2 ng/mL (0.6-6.3)
[2018-07-07 03:33] LABS: Troponin I 4.16 ng/mL (<0.04)
[2018-07-07 05:06] LABS: ABS Basophils 0.1 10^3/ul (0-0.2); ABS Eosinophils 0.3 10^3/ul (0-0.6); ABS Lymphocytes 3.1 10^3/ul (1.0-4.8); ABS Monocytes 0.7 10^3/ul (0-0.8); ABS Neutrophils 6.2 10^3/ul (1.5-7.7); Eosinophil % 2.5 %; Hematocrit 43 % (42-52); Hemoglobin 14.9 g/dL (14.0-18.0); Lymphocyte % 29.7 %; Mean Corpuscular HGB Conc 35 g/dL (31-36); Mean Corpuscular Hemoglobin 33 pg (27-31); Mean Corpuscular Volume 94 fL (80-94); Mean Platelet Volume 8.4 fL (7.4-10.4); Nucleated Red Blood Cells % 0.1; Platelet Count 244 10^3/uL (150-450); Red Cell Distribution Width 14 % (10.5-15); White Blood Count 10.4 10^3/uL (3.5-10.8)
[2018-07-07 05:28] LABS: Anion Gap 5 mmol/L (2-11); BUN/Creatinine Ratio 17.2 (8-20); Blood Urea Nitrogen 16 mg/dL (6-24); CO2 Carbon Dioxide 19 mmol/L (22-32); Calcium 8.4 mg/dL (8.6-10.3); Chloride 110 mmol/L (101-111); Cholesterol 264 mg/dL; EGFR African American 103.6 (>60); EGFR Non-African American 85.7 (>60); Glucose 97 mg/dL (70-100); HDL Cholesterol 28.8 mg/dL; LDL Cholesterol 202 mg/dL; Sodium 134 mmol/L (135-145); Triglycerides 166 mg/dL
[2018-07-07] MEDS: Aspirin 81 mg CHEW TAB* 81 MG TAB.CHEW PO SCH (07:47)
[2018-07-07] MEDS: Pantoprazole TAB * 40 MG TAB PO SCH (07:47)
[2018-07-07] MEDS: Metoprolol Tartrate TAB* 25 MG PO SCH ×2 (07:47→20:28)
[2018-07-07] MEDS: Nicotine PATCH 14 MG/24 HR* PATCH TRANSDERM SCH (07:47)
[2018-07-07] MEDS: Ticagrelor* 90 MG TAB PO SCH ×2 (07:48→20:25)
--- NOTE | 2018-07-07 09:23 | ECHO ---
*[facility]* [place] [address] Fax #: [phone] Patient: Ruthie Height: 67 in / Ector Carson 170.2 cm : 1965 Weight: 218.5 lb / Study Date: 07/07/2018 99.3 kg Age: 52 BP: 115 / 66 Gender: M BMI/BSA: 34.3 HR: 60 bpm kg/m^2 / 2.2 m^2 *Boiler Maker: * Татьяна Garvin [facility] *Referring Physician: * Jackson Lassiter MD *Reading Physician: * Imelda Wiseman MD Indications: Myocardial Infarction (new). History: PMH: Myocardial infarction. Labs, prior tests, procedures, and surgery: Catheterization. There was a stenosis which was treated with a stent. Conclusions Summary: 1. Left ventricle: Systolic function is normal. The estimated ejection fraction is 55-60%. Possible hypokinesis of the basalinferior myocardium. There is no consistent Doppler evidence of clinically significant diastolic dysfunction. 2. No prior study avaialble. 3. No significant valvular disease. Study data: Procedure: Transthoracic echocardiography was performed. Image quality was good. Complete 2D, spectral Doppler, and color flow Doppler. Location: ICU Patient status: Inpatient. Patient room number: 9. Rhythm: Normal sinus rhythm. Findings Left ventricle: The cavity size is normal. Wall thickness is mildly increased. Systolic function is normal. The estimated ejection fraction is 55-60%. Regional wall motion abnormalities: Possible hypokinesis of the basalinferior myocardium. There is no consistent Doppler evidence of clinically significant diastolic dysfunction. Right ventricle: The cavity size is normal. Systolic function is normal. Left atrium: The atrium is normal in size. Right atrium: The atrium is normal in size. Mitral valve: The annulus is mildly calcified. The leaflets are mildly thickened. There is no evidence of stenosis. There is trivial regurgitation. Aortic valve: The valve is trileaflet. The leaflets are mildly thickened. There is no evidence of stenosis. There is no significant regurgitation. Tricuspid valve: The leaflets are normal thickness. There is no evidence of stenosis. There is no significant regurgitation. Pulmonic valve: The leaflets are normal thickness. There is no evidence of stenosis. There is no significant regurgitation. Aorta: There is plaque visualized in the Aortic. Aortic arch: The aortic arch is appears normal. The aortic root is not dilated. Pericardium: There is no significant pericardial effusion. Pulmonary arteries: Not well visualized. Systemic veins: Inferior vena cava: The vessel is normal in size. Measurements Left ventricle Value Ref Aortic valve Value Ref ROSIE, LAX 4.5 cm 4.2 - 5.8 Jennifer diam, ED 2.2 cm ---- ESD, LAX 3.7 cm 2.5 - 4.0 Peak v, S 1.33 m/sec ---- FS, LAX (L) 18 % 25 - 43 VTI, S 27.2 cm ---- PW, ED, LAX (H) 1.2 cm 0.6 - 1.0 Mean grad, S 4.1 mm Hg ---- Mid-wall FS 8 % --------- Peak grad, S 7.1 mm Hg ---- EF (L) 37 % 52 - 72 LVOT/AV, VTI ratio 0.82 ---- E', lat jennifer, TDI (L) 9.0 cm/sec >=10.0 E/e', lat jennifer, TDI 7 --------- Mitral valve Value Ref E', med jennifer, TDI 7.0 cm/sec >=7.0 Peak E 0.59 m/sec -- -- E/e', med jennifer, TDI 8 --------- Peak A 0.8 m/sec ---- E', avg, TDI 8.0 cm/sec --------- Decel time 215 ms ---- E/e', avg, TDI 7 <=14 Peak E/A ratio 0.74 -- -- LVOT Value Ref Pulmonic valve Value Ref Peak delmi, S 1.06 m/sec --------- Peak v, S 0.71 m/sec ---- VTI, S 22.4 cm --------- Peak grad, S 2.0 mm Hg ---- Peak grad, S 4 mm Hg --------- Mean grad, S 2 mm Hg --------- Aortic root Value Ref Root diam 3.1 cm <4.3 Ventricular septum Value Ref IVS, ED (H) 1.2 cm 0.6 - 1.0 Ascending aorta Value Ref AAo AP diam, S 3.1 cm ---- Right ventricle Value Ref ROSIE, LAX 3.0 cm --------- Aortic arch Value Ref ROSIE major ax, A4C (L) 2.5 cm 5.9 - 8.3 Arch diam 2.8 cm ---- Left atrium Value Ref Decending aorta Value Ref LA ID 4.0 cm --------- Marguerite peak delmi 0.72 m/sec ---- ML dim, A4C 3.7 cm --------- SI dim, A4C 5.3 cm --------- Inferior vena cava Value Ref Vol/bsa, ES, 2-p 22 ml/m^2 16 - 34 Diam 1.7 cm ---- Right atrium Value Ref Pulmonary veins Value Ref SI dim, ES 4.8 cm 3.4 - 5.3 Peak v, S 0.58 m/sec ---- ML dim, ES, A4C 3.6 cm 2.6 - 4.4 Peak v, D 0.4 m/sec ---- Estimated RAP 3 mm Hg --------- Peak S/D ratio 1.47 ---- A rev duration 114 ms ---- Legend: (L) and (H) sammy values outside specified reference range. Prepared and electronically signed by Imelda Wiseman MD 07/07/2018 09:23
--- NOTE | 2018-07-07 10:48 | PN ---
<LamontHoney - Last Filed: 07/07/18 10:42> Subjective Date of Service: 07/07/18 - inferior STEMI 07/06/2018 s/p CAR/RCA Interval History: No events last night, patient states he continues to have a dull chest pain that is constant and has not gone away, however, substernal chest ache radiating to left neck did resolve. No c/o dizziness, lightheadedness, sob or palpitations. He has been OOB and ambulating to toilet with no complaints. He states he is going home today despite what we say. Medications Active Medications: Acetaminophen (Tylenol Tab*) 650 mg PO Q4H PRN PRN Reason: HEADACHE/PAIN Last Admin: 07/06/18 18:17 Dose: 650 mg Aspirin (Aspirin 81 Mg Chew Tab*) 81 mg PO DAILY [facility] Last Admin: 07/07/18 07:47 Dose: 81 mg Atorvastatin Calcium (Lipitor*) 80 mg PO 2100 [facility] Docusate Sodium (Colace Cap*) 100 mg PO DAILY PRN PRN Reason: CONSTIPATION Metoprolol Tartrate (Lopressor Tab*) 25 mg PO BID [facility] Last Admin: 07/07/18 07:47 Dose: 25 mg Nicotine (Nicotine Patch 14 Mg/24 Hr*) 1 patch TRANSDERM DAILY [facility] Last Admin: 07/07/18 07:47 Dose: 1 patch Nitroglycerin (Nitroglycerin Tab 0.4 Mg*) 0.4 mg SL Q5M PRN PRN Reason: ANGINA Ondansetron HCl (Zofran Inj*) 4 mg IV Q4H PRN PRN Reason: NAUSEA Pantoprazole Sodium (Protonix Tab*) 40 mg PO DAILY [facility] Last Admin: 07/07/18 07:47 Dose: 40 mg Pharmacy Profile Note (Nicotine Patch Removal Note*) 1 note FOLLOW UP 2100 [facility] Ticagrelor (Brilinta*) 90 mg PO BID [facility] Last Admin: 07/07/18 07:48 Dose: 90 mg Zolpidem Tartrate (Ambien Tab*) 5 mg PO BEDTIME PRN PRN Reason: INSOMNIA Last Admin: 07/07/18 00:09 Dose: 5 mg Objective Vital Signs: Temp Pulse Resp BP Pulse Ox 98.5 F 63 19 121/75 96 07/07/18 08:00 07/07/18 09:01 07/07/18 10:00 07/07/18 09:01 07/07/18 09:01 Oxygen Devices in Use Now: None Appearance: well nourished, A+O x3, cooperative with exam, NAD. Ears/Nose/Mouth/Throat: NL Teeth, Lips, Gums, Clear Oropharnyx, Mucous Membranes Moist Neck: NL Appearance and Movements; NL JVP, Trachea Midline Respiratory: Symmetrical Chest Expansion and Respiratory Effort, Clear to Auscultation Cardiovascular: NL Sounds; No Murmurs; No JVD, No Edema, - - right radial access site intact, no hematome. Right gemoral access site intact, non tender to palpation, no hemetoma. + strong bounding femoral pulse. Extremities: No Edema Neurological: Alert and Oriented x 3 Lines/Tubes/Other Access: Clean, Dry and Intact Peripheral IV Laboratory Results: 07/07/18 04:40 07/07/18 09:10 INR (Anticoag Therapy) 0.91 (0.82-1.09) 07/06/18 14:51 APTT 110.9 seconds (26.0-36.3) H* 07/06/18 14:51 Total Bilirubin 0.40 mg/dL (0.2-1.0) 07/06/18 14:51 AST 30 U/L (13-39) 07/06/18 14:51 ALT 32 U/L (7-52) 07/06/18 14:51 Alkaline Phosphatase 155 U/L (34-104) H 07/06/18 14:51 CK-MB (CK-2) 28.2 ng/mL (0.6-6.3) H 07/07/18 02:55 B-Natriuretic Peptide 8 pg/mL (<=100) 07/06/18 14:51 Total Protein 8.4 g/dL (6.4-8.9) 07/06/18 14:51 Albumin 4.6 g/dL (3.2-5.2) 07/06/18 14:51 Globulin 3.8 g/dL (2-4) 07/06/18 14:51 Albumin/Globulin Ratio 1.2 (1-3) 07/06/18 14:51 Triglycerides 166 mg/dL 07/07/18 04:40 Cholesterol 264 mg/dL 07/07/18 04:40 LDL Cholesterol 202 mg/dL 07/07/18 04:40 HDL Cholesterol 28.8 mg/dL 07/07/18 04:40 07/06/18 07/06/18 07/07/18 14:51 20:45 02:55 Troponin I 0.01 3.42 H* 4.16 H* Laboratory Results - last 24 hr 07/06/18 07/06/18 07/06/18 14:51 14:51 14:51 WBC 16.7 H RBC 5.34 Hgb 17.1 Hct 50 MCV 94 MCH 32 H MCHC 34 RDW 13 Plt Count 335 MPV 7.8 Neut % (Auto) Not Reportable Lymph % (Auto) Not Reportable Branch % (Auto) Not Reportable Eos % (Auto) Not Reportable Baso % (Auto) Not Reportable Absolute Neuts (auto) Not Reportable Absolute Lymphs (auto) Not Reportable Absolute Monos (auto) Not Reportable Absolute Eos (auto) Not Reportable Absolute Basos (auto) Not Reportable Absolute Nucleated RBC Not Reportable Neutrophils % 44.0 Lymphocytes % 30.0 Reactive Lymphs % 20.0 H Monocytes % 4.0 Eosinophils % 1.0 Basophils % 1.0 Nucleated RBC % Not Reportable Abs Neuts (Manual) 7.3 Abs Lymphs (Manual) 8.4 H Abs Monocytes (Manual) 0.7 Absolute Eos (Manual) 0.2 Abs Basophils (Manual) 0.2 Normal RBC Morphology Normal INR (Anticoag Therapy) 0.91 APTT 110.9 H* POC Activ Clotting Time Sodium 139 Potassium 3.8 Chloride 106 Carbon Dioxide 22 Anion Gap 11 BUN 20 Creatinine 1.15 Est GFR ( Amer) 81.1 Est GFR (Non-Af Amer) 67.0 BUN/Creatinine Ratio 17.4 Glucose 121 H Calcium 9.9 Total Bilirubin 0.40 AST 30 ALT 32 Alkaline Phosphatase 155 H Total Creatine Kinase 539 H CK-MB (CK-2) 3.2 Troponin I 0.01 B-Natriuretic Peptide Total Protein 8.4 Albumin 4.6 Globulin 3.8 Albumin/Globulin Ratio 1.2 Triglycerides Cholesterol LDL Cholesterol LDL Cholesterol Direct 241 HDL Cholesterol 07/06/18 07/06/18 07/06/18 14:51 15:15 20:45 WBC RBC Hgb Hct MCV MCH MCHC RDW Plt Count MPV Neut % (Auto) Lymph % (Auto) Branch % (Auto) Eos % (Auto) Baso % (Auto) Absolute Neuts (auto) Absolute Lymphs (auto) Absolute Monos (auto) Absolute Eos (auto) Absolute Basos (auto) Absolute Nucleated RBC Neutrophils % Lymphocytes % Reactive Lymphs % Monocytes % Eosinophils % Basophils % Nucleated RBC % Abs Neuts (Manual) Abs Lymphs (Manual) Abs Monocytes (Manual) Absolute Eos (Manual) Abs Basophils (Manual) Normal RBC Morphology INR (Anticoag Therapy) APTT POC Activ Clotting Time 192 Sodium Potassium Chloride Carbon Dioxide Anion Gap BUN Creatinine Est GFR ( Amer) Est GFR (Non-Af Amer) BUN/Creatinine Ratio Glucose Calcium Total Bilirubin AST ALT Alkaline Phosphatase Total Creatine Kinase 517 H CK-MB (CK-2) 21.9 H Troponin I 3.42 H* B-Natriuretic Peptide 8 Total Protein Albumin Globulin Albumin/Globulin Ratio Triglycerides Cholesterol LDL Cholesterol LDL Cholesterol Direct HDL Cholesterol 07/07/18 07/07/18 07/07/18 02:55 04:40 04:40 WBC 10.4 RBC 4.60 Hgb 14.9 Hct 43 MCV 94 MCH 33 H MCHC 35 RDW 14 Plt Count 244 MPV 8.4 Neut % (Auto) 59.7 Lymph % (Auto) 29.7 Branch % (Auto) 7.1 Eos % (Auto) 2.5 Baso % (Auto) 1.0 Absolute Neuts (auto) 6.2 Absolute Lymphs (auto) 3.1 Absolute Monos (auto) 0.7 Absolute Eos (auto) 0.3 Absolute Basos (auto) 0.1 Absolute Nucleated RBC 0.0 Neutrophils % Lymphocytes % Reactive Lymphs % Monocytes % Eosinophils % Basophils % Nucleated RBC % 0.1 Abs Neuts (Manual) Abs Lymphs (Manual) Abs Monocytes (Manual) Absolute Eos (Manual) Abs Basophils (Manual) Normal RBC Morphology INR (Anticoag Therapy) APTT POC Activ Clotting Time Sodium 134 L Potassium TNP Chloride 110 Carbon Dioxide 19 L Anion Gap 5 BUN 16 Creatinine 0.93 Est GFR ( Amer) 103.6 Est GFR (Non-Af Amer) 85.7 BUN/Creatinine Ratio 17.2 Glucose 97 Calcium 8.4 L Total Bilirubin AST ALT Alkaline Phosphatase Total Creatine Kinase 543 H CK-MB (CK-2) 28.2 H Troponin I 4.16 H* B-Natriuretic Peptide Total Protein Albumin Globulin Albumin/Globulin Ratio Triglycerides 166 Cholesterol 264 LDL Cholesterol 202 LDL Cholesterol Direct HDL Cholesterol 28.8 07/07/18 07/07/18 05:45 09:10 WBC RBC Hgb Hct MCV MCH MCHC RDW Plt Count MPV Neut % (Auto) Lymph % (Auto) Branch % (Auto) Eos % (Auto) Baso % (Auto) Absolute Neuts (auto) Absolute Lymphs (auto) Absolute Monos (auto) Absolute Eos (auto) Absolute Basos (auto) Absolute Nucleated RBC Neutrophils % Lymphocytes % Reactive Lymphs % Monocytes % Eosinophils % Basophils % Nucleated RBC % Abs Neuts (Manual) Abs Lymphs (Manual) Abs Monocytes (Manual) Absolute Eos (Manual) Abs Basophils (Manual) Normal RBC Morphology INR (Anticoag Therapy) APTT POC Activ Clotting Time Sodium Potassium TNP 4.0 Chloride Carbon Dioxide Anion Gap BUN Creatinine Est GFR ( Amer) Est GFR (Non-Af Amer) BUN/Creatinine Ratio Glucose Calcium Total Bilirubin AST ALT Alkaline Phosphatase Total Creatine Kinase CK-MB (CK-2) Troponin I B-Natriuretic Peptide Total Protein Albumin Globulin Albumin/Globulin Ratio Triglycerides Cholesterol LDL Cholesterol LDL Cholesterol Direct HDL Cholesterol Diagnostic Imaging: C 07/06/2018 please refer to report in paper chart. Echo 07/07/2018 per report; Rhythm: Normal sinus rhythm. Findings Left ventricle: The cavity size is normal. Wall thickness is mildly increased. Systolic function is normal. The estimated ejection fraction is 55-60%. Regional wall motion abnormalities: Possible hypokinesis of the basalinferior myocardium. There is no consistent Doppler evidence of clinically significant diastolic dysfunction. Right ventricle: The cavity size is normal. Systolic function is normal. Left atrium: The atrium is normal in size. Right atrium: The atrium is normal in size. Mitral valve: The annulus is mildly calcified. The leaflets are mildly thickened. There is no evidence of stenosis. There is trivial regurgitation. Aortic valve: The valve is trileaflet. The leaflets are mildly thickened. There is no evidence of stenosis. There is no significant regurgitation. Tricuspid valve: The leaflets are normal thickness. There is no evidence of stenosis. There is no significant regurgitation. Pulmonic valve: The leaflets are normal thickness. There is no evidence of stenosis. There is no significant regurgitation. Aorta: There is plaque visualized in the Aortic. Aortic arch: The aortic arch is appears normal. The aortic root is not dilated. Pericardium: There is no significant pericardial effusion. Pulmonary arteries: Not well visualized. Systemic veins: Inferior vena cava: The vessel is normal in size. Measurements Left ventricle Value Ref Aortic valve Value Ref ROSIE, LAX 4.5 cm 4.2 - 5.8 Jennifer diam, ED 2.2 cm ---- ESD, LAX 3.7 cm 2.5 - 4.0 Peak v, S 1.33 m/sec ---- FS, LAX (L) 18 % 25 - 43 VTI, S 27.2 cm ---- PW, ED, LAX (H) 1.2 cm 0.6 - 1.0 Mean grad, S 4.1 mm Hg ---- Mid-wall FS 8 % --------- Peak grad, S 7.1 mm Hg ---- EF (L) 37 % 52 - 72 LVOT/AV, VTI ratio 0.82 ---- E', lat jennifer, TDI (L) 9.0 cm/sec >=10.0 E/e', lat jennifer, TDI 7 --------- Mitral valve Value Ref This report is only to be considered final once signed by the Provider(s) as displayed in the "<Electronically Signed by >" field (s). Absence of a signature indicates the report is in a draft status and still needs to be finalized. In the event this document was created by someone other than the signing Provider, the individual initiating the document will be listed in the "Entered by:" or "Dictated by:" crespo. EKG Data: 07/07/2018; Sinus rhythm rate 61 with inferior TW depression and q waves consistent with prior Mi Assessment/Plan #1; Inferior STEMi 07/06/2018; no recurrent c/o substernal chest pain radiating into left neck since PCI. He is s/p CAR/RCA. On ASA 81/day, Brilinta 90mg Po BID , Lipitor 80mg Po QHS, Lopressor 25mg Po BID. Troponin # 3 4.16 07/07/2018. LVEF preserved on echo. in the past he admits he was non compliant with cardiac follow up and medication adherence including DAPT. He is aware of the risk for instent thrombosis, [place] and or if he is non compliant with therapy and states he will follow up and adhere to medication regimen. He is clinically doing well, thus will transfer to and monitor on telemetry. No evidence of right radial access site or right femoral access site hematoma. #2 h/o HLD; LDL 202 now on Lipitor 80mg Po QHS. Goal LDL < 70 given h/o CAD. He reports a h/o cirrhosis thus he will need repeat FLP/LFT in 6-8 weeks. Currently AST/ALT are normal. #3 h/o HTN; Bp currently controlled on Lopressor therapy. Goal BP < 130/80 given h/o DM #4 h/o DM; glucose today on chemistry 97. Social work has been consulted to arrange for patient to establish with a primary doctor. #5 Disposition pending course, patient full code to be transferred to , he is agreeable to staying another night after speaking with Dr. Lassiter. await fourth troponin. Attending: Jackson Lassiter <Jackson Lassiter - Last Filed: 07/08/18 07:22> Medications Active Medications: Acetaminophen (Tylenol Tab*) 650 mg PO Q4H PRN PRN Reason: HEADACHE/PAIN Last Admin: 07/07/18 17:10 Dose: 650 mg Aspirin (Aspirin 81 Mg Chew Tab*) 81 mg PO DAILY [facility] Last Admin: 07/07/18 07:47 Dose: 81 mg Atorvastatin Calcium (Lipitor*) 80 mg PO 2100 [facility] Last Admin: 07/07/18 20:25 Dose: 80 mg Docusate Sodium (Colace Cap*) 100 mg PO DAILY PRN PRN Reason: CONSTIPATION Metoprolol Tartrate (Lopressor Tab*) 25 mg PO BID [facility] Last Admin: 07/07/18 20:28 Dose: Not Given Nicotine (Nicotine Patch 14 Mg/24 Hr*) 1 patch TRANSDERM DAILY [facility] Last Admin: 07/07/18 07:47 Dose: 1 patch Nitroglycerin (Nitroglycerin Tab 0.4 Mg*) 0.4 mg SL Q5M PRN PRN Reason: ANGINA Ondansetron HCl (Zofran Inj*) 4 mg IV Q4H PRN PRN Reason: NAUSEA Pantoprazole Sodium (Protonix Tab*) 40 mg PO DAILY [facility] Last Admin: 07/07/18 07:47 Dose: 40 mg Pharmacy Profile Note (Nicotine Patch Removal Note*) 1 note FOLLOW UP 2100 [facility] Last Admin: 07/07/18 20:28 Dose: 1 note Ticagrelor (Brilinta*) 90 mg PO BID [facility] Last Admin: 07/07/18 20:25 Dose: 90 mg Zolpidem Tartrate (Ambien Tab*) 5 mg PO BEDTIME PRN PRN Reason: INSOMNIA Last Admin: 07/08/18 02:12 Dose: 5 mg Objective Vital Signs: Temp Pulse Resp BP Pulse Ox 97.4 F 67 18 102/61 98 07/08/18 03:32 07/08/18 03:32 07/08/18 03:32 07/08/18 03:32 07/08/18 03:32 Laboratory Results: 07/07/18 04:40 07/07/18 09:10 INR (Anticoag Therapy) 0.91 (0.82-1.09) 07/06/18 14:51 APTT 110.9 seconds (26.0-36.3) H* 07/06/18 14:51 Total Bilirubin 0.40 mg/dL (0.2-1.0) 07/06/18 14:51 AST 30 U/L (13-39) 07/06/18 14:51 ALT 32 U/L (7-52) 07/06/18 14:51 Alkaline Phosphatase 155 U/L (34-104) H 07/06/18 14:51 CK-MB (CK-2) 24.3 ng/mL (0.6-6.3) H 07/07/18 09:10 B-Natriuretic Peptide 8 pg/mL (<=100) 07/06/18 14:51 Total Protein 8.4 g/dL (6.4-8.9) 07/06/18 14:51 Albumin 4.6 g/dL (3.2-5.2) 07/06/18 14:51 Globulin 3.8 g/dL (2-4) 07/06/18 14:51 Albumin/Globulin Ratio 1.2 (1-3) 07/06/18 14:51 Triglycerides 166 mg/dL 07/07/18 04:40 Cholesterol 264 mg/dL 07/07/18 04:40 LDL Cholesterol 202 mg/dL 07/07/18 04:40 HDL Cholesterol 28.8 mg/dL 07/07/18 04:40 07/06/18 07/06/18 07/07/18 14:51 20:45 02:55 Troponin I 0.01 3.42 H* 4.16 H* 07/07/18 09:10 Troponin I 3.65 H* Assessment/Plan I have personally seen and examined the patient and am in agreement with the above plan as outlined above.
[2018-07-07 11:36] LABS: Anion Gap 8 mmol/L (2-11); BUN/Creatinine Ratio 16.8 (8-20); Blood Urea Nitrogen 16 mg/dL (6-24); CO2 Carbon Dioxide 20 mmol/L (22-32); Calcium 9.1 mg/dL (8.6-10.3); Chloride 109 mmol/L (101-111); Creatine Kinase 532 U/L (10-223); EGFR African American 101.1 (>60); EGFR Non-African American 83.6 (>60); Glucose 97 mg/dL (70-100); Sodium 137 mmol/L (135-145)
[2018-07-07 11:42] LABS: CKMB ng/mL 24.3 ng/mL (0.6-6.3)
[2018-07-07 11:59] LABS: Troponin I 3.65 ng/mL (<0.04)
--- NOTE | 2018-07-07 15:33 | CATH ---
CARDIAC CATHETERIZATION AND INTERVENTIONAL REPORT: DATE OF PROCEDURE: 07/06/18 - ROOM #444 INDICATIONS FOR PROCEDURE: The patient presents with an acute ST-segment elevation inferior wall myocardial infarction, now for emergent cardiac catheterization and intervention. PROCEDURE: Coronary arteriography, balloon angioplasty and placement of a 3.0 x 32 mm long Synergy drug-eluting stent post dilated to 3.3 to 3.4 mm, left heart catheterization, left ventriculography. CONSENT: The patient was interviewed and examined in the emergency room where the risks and benefits were explained. He understood them and wished to proceed. Of note, the patient was in a very emotional state, crying profusely, and making it difficult to explain the procedure, delaying it slightly in our ability to get him right to the cardiovascular laboratory. APPROACH UTILIZED: The right radial artery was assessed under ultrasound guidance in the laboratory sample carrier and initially was felt to be approachable. Despite getting flashback arterial blood, the wire could not be advanced well and as such, this approach was aborted for the right femoral approach. PRECARDIAC CATHETERIZATION LABORATORY RESULTS: Not initially available at the time of starting the case; however, in the middle of the case, hemoglobin and hematocrit came back at 17.1 and 50 with platelet count of 335,000, BUN and creatinine were 20 and 1.12, sodium 136, potassium 4.1, chloride 109, bicarb 21 , troponin initially 0.01. EQUIPMENT UTILIZED: 1. Right femoral artery sheath - a 6.5-Sudanese Merit Prelude Sheath. 2. Diagnostic guidewire was a 175 left J-tip guidewire. 3. Diagnostic coronary arteriography catheters - a Sudanese FL4 curve for the left coronary catheter and a 6-Sudanese ART4 curve with side holes guiding catheter was utilized to cannulate the right coronary artery. 4. Guide catheter - 6-Sudanese ART4 curve catheter with side holes. 5. Interventional wire - 190 cm length BMW wire. 6. A pre-stent placement balloon catheter - 3.0 x 20 mm long NC Emerge balloon. 7. Stent utilized - a 3.0 x 32 mm long Synergy drug-eluting stent. 8. Post stent deployment balloon inflation. A 3.25 x 20 mm long NC Emerge balloon to high pressures. 9. Closure device utilized was a 6/7 Sudanese Mynx closure device. MEDICATIONS GIVEN: The patient had already received: 1. Brilinta 180 mg. 2. Heparin 7000 units. 3. Aspirin 325 mg. ACT was checked and found to be subtherapeutic. Angiomax bolus and Angiomax drip was given. The patient did receive a total of 2.5 mg of Versed intravenously. The patient received intracoronary nitroglycerin as well. DESCRIPTION OF PROCEDURE: The patient was brought to the cardiovascular laboratory, a formal time-out was performed. He was prepped and draped in a sterile fashion. The right radial artery area was anesthetized with 1% lidocaine and initial attempts were made to cannulate the right radial artery. They were not successful and as such this approach was aborted, manual pressure was utilized to control hemostasis. The right femoral artery area was anesthetized with 1% lidocaine. The right femoral artery was cannulated using an anterior wall stick only. The sheath was placed, coronary arteriography was performed. Following this, the incision was made to intervene into the right coronary artery. ACT was checked and found to be subtherapeutic and as such, Angiomax bolus and Angiomax drip as utilized. The guidewire was advanced on the right coronary artery and balloon dilatations were made utilizing the 3.0 x 20 mm long NC Emerge balloon. Following this, the stent was deployed and postdeployment stent inflations were made utilizing a 3.25 x 20 mm NC Emerge balloon to high pressures. Following this, further injections into the left coronary artery were made to complete the evaluation of that. Following that, a 5-Sudanese pigtail catheter was utilized to perform left heart catheterization and left ventriculography. Left ventriculography was performed utilizing a total of 28 cc of Omnipaque dye at a rate of 14 cc per second. At the end of the case, the catheter and sheath were removed and hemostasis was obtained with Mynx closure device. TOTAL CONTRAST UTILIZED: 170 cc of Omnipaque dye. The radiation exposure included 8.8 minutes of fluoro time. The air kerma radiation was 2380 mGy. The DAP radiation was 14,663 microgray per/m2. RESULTS: HEMODYNAMIC DATA: Central aortic pressure recorded at 125/74 with a mean of 96. Left ventricular pressure of 132. Left ventricular end-diagnostic pressure of 25 mmHg. LEFT VENTRICULOGRAPHY: Performed in the SAUNDERS projection reveals symmetrical contracture of the left ventricle with the exception of the most proximal inferior wall which had mild/ mild to moderate hypokinesis. Overall ejection fraction appear to be at least 60%. No significant mitral regurgitation was noted. CORONARY ARTERIOGRAPHY: A. Left coronary artery: 1. Left main - widely patent. 2. Left anterior descending artery - of note there was tapering of the proximal left anterior descending artery with eccentric narrowing noted. In its worse view, the CYMRO caudal projection had appeared to have a narrowing as much as 65% to 70%. The LAD traversed to the apical region and on to the distal inferior wall to a minimal amount. The mid portion of the LAD had mild narrowing of 30 to 40%. 3. Circumflex artery - a nondominant vessel supplying a trifurcation marginal branch/high first obtuse marginal branch which traversed across the upper posterior to mid to low posterior apical region. There was no significant disease seen within this vessel with mild irregularities in its proximal portion. The continuation to the circumflex supplied a thin second obtuse marginal branch and ended in a bifurcating third obtuse marginal branch. The proximal portion of the vessel after the take off of the high first obtuse marginal branch had a diffuse segment of narrowing of approximately 55% to 60%. B. Right coronary artery - A dominant vessel supplying the PDA and multiple posterior left ventricular branches. There was mild proximal narrowing of 25% to 30%. The mid segment had mild luminal irregularities. After the artery turned on to the inferior surface of the heart and prior to the posterior descending artery, there were suggestive findings of diffuse in-stent restenosis with possible thrombus present as well with critically stenosed area of 95% hazy lesion with YAMILA- 2 flow. It was somewhat long in nature encompassing approximately 18 to 20 mm. Following that area, the rest of the right coronary artery appeared to have a fairly normal appearance. There was transient spasm of the segment of the artery just prior to the posterior descending artery that resolved with nitroglycerin. INTERVENTION INTO DISTAL RIGHT CORONARY ARTERY: Successful reduction of critical 90% diffusely diseased in-stent restenosed with possible thrombus present and treated with balloon angioplasty and placement of a 3.0 x 32 mm long Synergy drug- eluding stent postdilated to 3.3 to 3.4 mm with YAMILA-3 flow, no dissection seen and 0% residual stenosis. OVERALL ASSESSMENT: Successful intervention for acute ST-segment elevation inferior wall myocardial infarction with reduction of critical 95% in-stent restenosis with possible thrombus with residual stenosis of 0%, YAMILA-3 flow, no dissection seen in the distal right coronary artery with placement of a 3.0 x 32 mm long Synergy drug-eluting stent dilated to 3.3 to 3.4 mm. The patient will be kept on dual-antiplatelet therapy ideally for a year, although given his lack f compliance in the past, consideration will have to be made towards strict education and simplifying his regimen. For now, we will utilize Brilinta for at least the first month for which he will get free medication. After that consideration at some point to switching him to Plavix for compliance as a once a day pill may be helpful. High-dose statin therapy will be utilized and beta- derek therapy will be instituted as well. Smoking cessation was already addressed with him and discussed and will have to be monitored. We will also try to set up a family physician for him during the time he is in the hospital. [id number]/CPS #: [id number] KATELYN
[2018-07-07] MEDS: Acetaminophen TAB* 325 MG PO PRN (17:10)
[2018-07-07] MEDS ORDERED: Nicotine Patch Removal NOTE FOLLOW UP SCH (21:00)
[2018-07-07] MEDS ORDERED: Atorvastatin* 80 MG TAB PO SCH (21:00)
[2018-07-08] MEDS: Zolpidem TAB* 5 MG PO PRN (02:12)
--- NOTE | 2018-07-08 08:32 | PN ---
<LamontHoney - Last Filed: 07/08/18 08:26> Subjective Date of Service: 07/08/18 - Inferior stemi s/p CAR/RCA Interval History: No events last night, patient states he is leaving early this morning no matter what. He denies chest pain, sob, dizziness, lightheadedness, palpitations, right radial access or right groin access pain. He has been ambulating with no difficulty. I spoke to Tho JACK taking care of patient who states there has been no events last night. Medications Active Medications: Acetaminophen (Tylenol Tab*) 650 mg PO Q4H PRN PRN Reason: HEADACHE/PAIN Last Admin: 07/07/18 17:10 Dose: 650 mg Aspirin (Aspirin 81 Mg Chew Tab*) 81 mg PO DAILY [facility] Last Admin: 07/07/18 07:47 Dose: 81 mg Atorvastatin Calcium (Lipitor*) 80 mg PO 2100 [facility] Last Admin: 07/07/18 20:25 Dose: 80 mg Docusate Sodium (Colace Cap*) 100 mg PO DAILY PRN PRN Reason: CONSTIPATION Metoprolol Tartrate (Lopressor Tab*) 25 mg PO BID [facility] Last Admin: 07/07/18 20:28 Dose: Not Given Nicotine (Nicotine Patch 14 Mg/24 Hr*) 1 patch TRANSDERM DAILY [facility] Last Admin: 07/07/18 07:47 Dose: 1 patch Nitroglycerin (Nitroglycerin Tab 0.4 Mg*) 0.4 mg SL Q5M PRN PRN Reason: ANGINA Ondansetron HCl (Zofran Inj*) 4 mg IV Q4H PRN PRN Reason: NAUSEA Pantoprazole Sodium (Protonix Tab*) 40 mg PO DAILY [facility] Last Admin: 07/07/18 07:47 Dose: 40 mg Pharmacy Profile Note (Nicotine Patch Removal Note*) 1 note FOLLOW UP 2099 [facility] Last Admin: 07/07/18 20:28 Dose: 1 note Ticagrelor (Brilinta*) 90 mg PO BID [facility] Last Admin: 07/07/18 20:25 Dose: 90 mg Zolpidem Tartrate (Ambien Tab*) 5 mg PO BEDTIME PRN PRN Reason: INSOMNIA Last Admin: 07/08/18 02:12 Dose: 5 mg Objective Vital Signs: Temp Pulse Resp BP Pulse Ox 97.4 F 67 18 102/61 98 07/08/18 03:32 07/08/18 03:32 07/08/18 03:32 07/08/18 03:32 07/08/18 03:32 Oxygen Devices in Use Now: None Appearance: well nourished, A+O x3, cooperative with exam, NAD. Ears/Nose/Mouth/Throat: NL Teeth, Lips, Gums, Clear Oropharnyx, Mucous Membranes Moist Neck: NL Appearance and Movements; NL JVP, Trachea Midline Respiratory: Symmetrical Chest Expansion and Respiratory Effort, Clear to Auscultation Cardiovascular: NL Sounds; No Murmurs; No JVD, No Edema, - - right radial access site intact, no hematome. Right gemoral access site intact, non tender to palpation, no hemetoma. + strong bounding femoral pulse. Extremities: No Edema Neurological: Alert and Oriented x 3 Lines/Tubes/Other Access: Clean, Dry and Intact Peripheral IV Laboratory Results: 07/07/18 04:40 07/07/18 09:10 INR (Anticoag Therapy) 0.91 (0.82-1.09) 07/06/18 14:51 APTT 110.9 seconds (26.0-36.3) H* 07/06/18 14:51 Total Bilirubin 0.40 mg/dL (0.2-1.0) 07/06/18 14:51 AST 30 U/L (13-39) 07/06/18 14:51 ALT 32 U/L (7-52) 07/06/18 14:51 Alkaline Phosphatase 155 U/L (34-104) H 07/06/18 14:51 CK-MB (CK-2) 24.3 ng/mL (0.6-6.3) H 07/07/18 09:10 B-Natriuretic Peptide 8 pg/mL (<=100) 07/06/18 14:51 Total Protein 8.4 g/dL (6.4-8.9) 07/06/18 14:51 Albumin 4.6 g/dL (3.2-5.2) 07/06/18 14:51 Globulin 3.8 g/dL (2-4) 07/06/18 14:51 Albumin/Globulin Ratio 1.2 (1-3) 07/06/18 14:51 Triglycerides 166 mg/dL 07/07/18 04:40 Cholesterol 264 mg/dL 07/07/18 04:40 LDL Cholesterol 202 mg/dL 07/07/18 04:40 HDL Cholesterol 28.8 mg/dL 07/07/18 04:40 07/06/18 07/06/18 07/07/18 14:51 20:45 02:55 Troponin I 0.01 3.42 H* 4.16 H* 07/07/18 09:10 Troponin I 3.65 H* Laboratory Results - last 24 hr 07/07/18 07/07/18 09:10 09:10 Sodium 137 Potassium 4.0 4.0 Chloride 109 Carbon Dioxide 20 L Anion Gap 8 BUN 16 Creatinine 0.95 Est GFR ( Amer) 101.1 Est GFR (Non-Af Amer) 83.6 BUN/Creatinine Ratio 16.8 Glucose 97 Calcium 9.1 Total Creatine Kinase 532 H CK-MB (CK-2) 24.3 H Troponin I 3.65 H* Diagnostic Imaging: [facility] 07/06/2018 please refer to report in paper chart. Echo 07/07/2018 per report; Rhythm: Normal sinus rhythm. Findings Left ventricle: The cavity size is normal. Wall thickness is mildly increased. Systolic function is normal. The estimated ejection fraction is 55-60%. Regional wall motion abnormalities: Possible hypokinesis of the basalinferior myocardium. There is no consistent Doppler evidence of clinically significant diastolic dysfunction. Right ventricle: The cavity size is normal. Systolic function is normal. Left atrium: The atrium is normal in size. Right atrium: The atrium is normal in size. Mitral valve: The annulus is mildly calcified. The leaflets are mildly thickened. There is no evidence of stenosis. There is trivial regurgitation. Aortic valve: The valve is trileaflet. The leaflets are mildly thickened. There is no evidence of stenosis. There is no significant regurgitation. Tricuspid valve: The leaflets are normal thickness. There is no evidence of stenosis. There is no significant regurgitation. Pulmonic valve: The leaflets are normal thickness. There is no evidence of stenosis. There is no significant regurgitation. Aorta: There is plaque visualized in the Aortic. Aortic arch: The aortic arch is appears normal. The aortic root is not dilated. Pericardium: There is no significant pericardial effusion. Pulmonary arteries: Not well visualized. Systemic veins: Inferior vena cava: The vessel is normal in size. Measurements Left ventricle Value Ref Aortic valve Value Ref ROSIE, LAX 4.5 cm 4.2 - 5.8 Jennifer diam, ED 2.2 cm ---- ESD, LAX 3.7 cm 2.5 - 4.0 Peak v, S 1.33 m/sec ---- FS, LAX (L) 18 % 25 - 43 VTI, S 27.2 cm ---- PW, ED, LAX (H) 1.2 cm 0.6 - 1.0 Mean grad, S 4.1 mm Hg ---- Mid-wall FS 8 % --------- Peak grad, S 7.1 mm Hg ---- EF (L) 37 % 52 - 72 LVOT/AV, VTI ratio 0.82 ---- E', lat jennifer, TDI (L) 9.0 cm/sec >=10.0 E/e', lat jennifer, TDI 7 --------- Mitral valve Value Ref This report is only to be considered final once signed by the Provider(s) as displayed in the "<Electronically Signed by >" field (s). Absence of a signature indicates the report is in a draft status and still needs to be finalized. In the event this document was created by someone other than the signing Provider, the individual initiating the document will be listed in the "Entered by:" or "Dictated by:" crespo. EKG Data: 07/07/2018; Sinus rhythm rate 61 with inferior TW depression and q waves consistent with prior Mi 07/08/2018; sinus bradycardia rate 59 with inferior q waves and deep inferior T waves consistent with recent HI. Assessment/Plan #1 Inferior STEMI 07/06/2018 s/p CAR/distal RCA with instent restenosis. Troponin peaked at 4.1 on 07/07/2018. LVEF preserved. Patient was non compliant with DAPT and cardiac follow up after prior HI with intervention. He is now on Crestor 20mg/day( his insurance will not cover Lipitor thus prescription for Crestor called into his pharmacy this morning), Lopressor, ASA 81/day, Brilinta therapy. He is to f/u next week with Dr. Alvarado. No driving for 1 week, no lifting anything > 5-10 lbs for 7-10 days. Medications have been sent to his pharmacy and he is being sent home with free 30 days supply of Brilinta therapy. He is aware that he will need to be on uninterrupted DAPT x12 months given presentation was STEMI. He is aware to not take more than 81mg of aspirin a day due to reducing efficacy of brilinta. He states he will try to stop smoking and is agreeable to taking medications and following up. He is aware of risk of in stent thrombosis if he is to stop his medications which can lead to HI/. #2 h/o HLD; Goal LDL < 70. Crestor 20/day sent to his pharmacy via verbal order. I spoke with his pharmacist Atorvastatin is not covered by his insurance. He has a h/o cirrhosis in the setting of prior alcoholism he informed me yesterday. Synthetic liver function tests were normal this admit however, he will need repeat labs in 6-8 weeks. #3 h/o DM; He is to f[facility] 10-14 days. Recommend tight glucose control for secondary prevention (CAD) #4 h/o HTN; BP currently controlled on current therapy. #5 Disposition; patient to be discharged home. Dr. Lassiter personally saw and examined patient and agrees with plan of care. Attending: Jackson Lassiter <Jackson Lassiter - Last Filed: 07/08/18 09:35> Medications Active Medications: Acetaminophen (Tylenol Tab*) 650 mg PO Q4H PRN PRN Reason: HEADACHE/PAIN Last Admin: 07/07/18 17:10 Dose: 650 mg Aspirin (Aspirin 81 Mg Chew Tab*) 81 mg PO DAILY [facility] Last Admin: 07/08/18 08:41 Dose: 81 mg Atorvastatin Calcium (Lipitor*) 80 mg PO 2100 [facility] Last Admin: 07/07/18 20:25 Dose: 80 mg Docusate Sodium (Colace Cap*) 100 mg PO DAILY PRN PRN Reason: CONSTIPATION Metoprolol Tartrate (Lopressor Tab*) 25 mg PO BID [facility] Last Admin: 07/08/18 08:41 Dose: 25 mg Nicotine (Nicotine Patch 14 Mg/24 Hr*) 1 patch TRANSDERM DAILY [facility] Last Admin: 07/08/18 08:51 Dose: 1 patch Nitroglycerin (Nitroglycerin Tab 0.4 Mg*) 0.4 mg SL Q5M PRN PRN Reason: ANGINA Ondansetron HCl (Zofran Inj*) 4 mg IV Q4H PRN PRN Reason: NAUSEA Pantoprazole Sodium (Protonix Tab*) 40 mg PO DAILY [facility] Last Admin: 07/08/18 08:41 Dose: 40 mg Pharmacy Profile Note (Nicotine Patch Removal Note*) 1 note FOLLOW UP 2099 [facility] Last Admin: 07/07/18 20:28 Dose: 1 note Ticagrelor (Brilinta*) 90 mg PO BID [facility] Last Admin: 07/08/18 08:41 Dose: 90 mg Zolpidem Tartrate (Ambien Tab*) 5 mg PO BEDTIME PRN PRN Reason: INSOMNIA Last Admin: 07/08/18 02:12 Dose: 5 mg Objective Vital Signs: Temp Pulse Resp BP Pulse Ox 97.6 F 64 14 126/75 98 07/08/18 08:59 07/08/18 08:59 07/08/18 08:59 07/08/18 08:59 07/08/18 08:59 Laboratory Results: 07/07/18 04:40 07/07/18 09:10 INR (Anticoag Therapy) 0.91 (0.82-1.09) 07/06/18 14:51 APTT 110.9 seconds (26.0-36.3) H* 07/06/18 14:51 Total Bilirubin 0.40 mg/dL (0.2-1.0) 07/06/18 14:51 AST 30 U/L (13-39) 07/06/18 14:51 ALT 32 U/L (7-52) 07/06/18 14:51 Alkaline Phosphatase 155 U/L (34-104) H 07/06/18 14:51 CK-MB (CK-2) 24.3 ng/mL (0.6-6.3) H 07/07/18 09:10 B-Natriuretic Peptide 8 pg/mL (<=100) 07/06/18 14:51 Total Protein 8.4 g/dL (6.4-8.9) 07/06/18 14:51 Albumin 4.6 g/dL (3.2-5.2) 07/06/18 14:51 Globulin 3.8 g/dL (2-4) 07/06/18 14:51 Albumin/Globulin Ratio 1.2 (1-3) 07/06/18 14:51 Triglycerides 166 mg/dL 07/07/18 04:40 Cholesterol 264 mg/dL 07/07/18 04:40 LDL Cholesterol 202 mg/dL 07/07/18 04:40 HDL Cholesterol 28.8 mg/dL 07/07/18 04:40 07/06/18 07/06/18 07/07/18 14:51 20:45 02:55 Troponin I 0.01 3.42 H* 4.16 H* 07/07/18 09:10 Troponin I 3.65 H* Assessment/Plan I personally spoke with and examined the patient and reviewed the above recommendations with him. He will be following up with Dr. Alvarado next week for a wound check and will be set up for cardiology follow up at that visit. I agree with the outlined plan above. I also stressed the importance of dual antioplatelet therapy, as did our nurse practioner, Honey Miguel. He understood this. I urged him to work on smoking cessation. I reviewed his stent card with him and he received the cardiac education booklet during the hospitalization and will be reading it.
[2018-07-08] MEDS: Ticagrelor* 90 MG TAB PO SCH (08:41)
[2018-07-08] MEDS: Metoprolol Tartrate TAB* 25 MG PO SCH (08:41)
[2018-07-08] MEDS: Pantoprazole TAB * 40 MG TAB PO SCH (08:41)
[2018-07-08] MEDS: Aspirin 81 mg CHEW TAB* 81 MG TAB.CHEW PO SCH (08:41)
[2018-07-08] MEDS: Nicotine PATCH 14 MG/24 HR* PATCH TRANSDERM SCH (08:51)
[2018-07-08 09:04] VITALS: BP 126/75
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
== END 2018-07-08 09:45 | disposition home or self-care (01) | DRG 175 ==
LOC: ED 14:45 → CHICATH 14:53 → ICU 16:35 → MEDTELE 07-07 11:23
PROVIDERS: ADMIT Internal Medicine Cardiovascular Disease; ATTEND Internal Medicine Cardiovascular Disease
PROC: 4A023N7 Measurement of Cardiac Sampling and Pressure, Left Heart, Percutaneous Approach (ICD-10-PCS; 2018-07-06)
PROC: B2151ZZ Fluoroscopy of Left Heart using Low Osmolar Contrast (ICD-10-PCS; 2018-07-06)
PROC: 027034Z Dilation of Coronary Artery, One Artery with Drug-eluting Intraluminal Device, Percutaneous Approach (ICD-10-PCS; principal; 2018-07-06 14:00)
PROC: B2111ZZ Fluoroscopy of Multiple Coronary Arteries using Low Osmolar Contrast (ICD-10-PCS; 2018-07-06 14:00)
DX: T82.855A Stenosis of coronary artery stent, initial encounter (principal); I21.19 ST elevation (STEMI) myocardial infarction involving other coronary artery of inferior wall; I25.10 Atherosclerotic heart disease of native coronary artery without angina pectoris; I10 Essential (primary) hypertension; E78.5 Hyperlipidemia, unspecified; E11.9 Type 2 diabetes mellitus without complications; E78.00 Pure hypercholesterolemia, unspecified; F17.210 Nicotine dependence, cigarettes, uncomplicated; Y71.3 Surgical instruments, materials and cardiovascular devices (including sutures) associated with adverse incidents; R79.1 Abnormal coagulation profile; Y92.9 Unspecified place or not applicable; Z91.14 Patient's other noncompliance with medication regimen; Z72.89 Other problems related to lifestyle; Z91.19 Patient's noncompliance with other medical treatment and regimen; I25.2 Old myocardial infarction; Z95.5 Presence of coronary angioplasty implant and graft; Z82.49 Family history of ischemic heart disease and other diseases of the circulatory system
CPT/HCPCS: 36415; 71045; 80048; 80053; 80061; 82550; 82553; 83721; 83880; 84484; 85025; 85060; 85347; 85610; 85730; 87641; 93005; 93306; 99285; A9270-GY; C1725; C1760; C1769; C1876; C1887; C9606-RC; J0583; J1644; J2250; J3010

== ENCOUNTER 2022-04-05 20:34 | Inpatient (IN) ==
[2022-04-05] MEDS ORDERED: Heparin - STEMI 5,000 UNITS/ML 1 ml VIAL IV ONE (20:41)
[2022-04-05 20:48] LABS: ABS Basophils 0.1 10^3/ul (0-0.2); ABS Eosinophils 0.1 10^3/ul (0-0.6); ABS Lymphocytes 1.8 10^3/ul (1.0-4.8); ABS Monocytes 1.1 10^3/ul (0-0.8); ABS Neutrophils 7.6 10^3/ul (1.5-7.7); Eosinophil % 1.3 %; Hematocrit 43 % (42-52); Hemoglobin 14.8 g/dL (14.0-18.0); Lymphocyte % 16.6 %; Mean Corpuscular HGB Conc 34 g/dL (31-36); Mean Corpuscular Hemoglobin 32 pg (27-31); Mean Corpuscular Volume 94 fL (80-94); Mean Platelet Volume 7.9 fL (7.4-10.4); Platelet Count 246 10^3/uL (150-450); Red Blood Count 4.59 10^6 /uL (4.18-5.48); Red Cell Distribution Width 13 % (10-15); White Blood Count 10.7 10^3/uL (3.5-10.8)
[2022-04-05] MEDS ORDERED: fentaNYL 100 mcg/2 ml 50 MCG/ML VIAL ONE ×2 (20:55→21:52)
[2022-04-05] MEDS ORDERED: Midazolam 5 mg/5 ml VIAL 1 mg/ml 5 ml VIAL (5 mg) ONE (20:55)
[2022-04-05] MEDS ORDERED: Iohexol 350 (CONTRAST) 100 ML PAK IV ONE (20:56)
[2022-04-05] MEDS ORDERED: Heparin 2 UNITS/ML 1000 mls 3,000 ML IV ONE (20:56)
[2022-04-05] MEDS ORDERED: Lidocaine 1% MPF 5 ML VIAL ONE (20:56)
[2022-04-05] MEDS ORDERED: nitroGLYCERIN DRIP 25,000 MCG/250 ML BTL ONE (20:56)
[2022-04-05 20:57] LABS: Activated Partial Thrombo Time 31.3 seconds (26.0-38.0); INR 1.07 (0.88-1.18)
[2022-04-05] MEDS ORDERED: niCARdipine 0.1MG/ML IVPREMIX 20 MG/200 ML BAG IV ONE (20:57)
[2022-04-05] MEDS ORDERED: Heparin 1,000 UNIT/ML 10 ml (10,000 UNITS) CATHLAB/DIALYSIS ONE (21:03)
[2022-04-05] MEDS ORDERED: Ondansetron 4 mg VIAL 2 MG/ML 2 ml VIAL ONE (21:16)
[2022-04-05] MEDS ORDERED: Atropine 0.1 MG/ML 10 ml SYR (1 mg) ONE (21:16)
[2022-04-05] MEDS ORDERED: Phenylephrine 40 mcg/mL 10mL (400mcg) SYRINGE ONE (21:17)
[2022-04-05 21:27] LABS: Albumin 4.1 g/dL (3.2-5.2); Calcium 9.1 mg/dL (8.6-10.3); Magnesium 1.7 mg/dL (1.9-2.7); Potassium 3.6 mmol/L (3.5-5.0); Total Bilirubin 0.3 mg/dL (0.2-1.0)
[2022-04-05 21:33] LABS: Albumin/Globulin Ratio 1.4 (1-3); Creatinine, Serum 1.15 mg/dL (0.67-1.17); Globulin 2.9 g/dL (2-4); eGFR CKD-EPI 75.2 (>60)
[2022-04-05] MEDS ORDERED: Ondansetron 4 mg VIAL 2 MG/ML 2 ml VIAL IV PRN (22:50)
[2022-04-05] MEDS ORDERED: Magnesium Sulfate IV 3 GM in NS 0.9% 100 ml BAG 100 ML IVPB ONE (23:08)
[2022-04-06 04:49] LABS: ABS Basophils 0.1 10^3/ul (0-0.2); ABS Eosinophils 0.3 10^3/ul (0-0.6); ABS Lymphocytes 3.4 10^3/ul (1.0-4.8); ABS Neutrophils 5.2 10^3/ul (1.5-7.7); Eosinophil % 3.5 %; Hematocrit 43 % (42-52); Hemoglobin 14.6 g/dL (14.0-18.0); Lymphocyte % 34.2 %; Mean Corpuscular HGB Conc 34 g/dL (31-36); Mean Corpuscular Hemoglobin 32 pg (27-31); Mean Corpuscular Volume 95 fL (80-94); Nucleated Red Blood Cells % 0.1; Platelet Count 237 10^3/uL (150-450); Red Blood Count 4.54 10^6 /uL (4.18-5.48); Red Cell Distribution Width 13 % (10-15); White Blood Count 10.1 10^3/uL (3.5-10.8)
[2022-04-06 05:26] LABS: Albumin 3.8 g/dL (3.2-5.2); Albumin/Globulin Ratio 1.4 (1-3); Calcium 8.5 mg/dL (8.6-10.3); Creatinine, Serum 0.97 mg/dL (0.67-1.17); Globulin 2.8 g/dL (2-4); HDL Cholesterol 31.4 mg/dL; Potassium 3.4 mmol/L (3.5-5.0); Total Bilirubin 0.3 mg/dL (0.2-1.0); Total Protein 6.6 g/dL (6.4-8.9); eGFR CKD-EPI 92.2 (>60)
[2022-04-06] MEDS ORDERED: Potassium Chlor 20 meq TAB.ER PO ONE (07:22)
[2022-04-06 07:51] LABS: Magnesium 2.4 mg/dL (1.9-2.7)
[2022-04-06] MEDS ORDERED: Sulfur Hexaflouride MICROSPHR 25 MG VIAL ONE (08:04)
[2022-04-06 12:10] VITALS: BP 107/66
== END 2022-04-06 12:26 | disposition home or self-care (01) | DRG 174 ==
LOC: ED 20:34 → CHICATH 20:35 → ED 21:07 → ICU 23:18
PROVIDERS: ADMIT Internal Medicine; ATTEND Internal Medicine